=== PATIENT | male | born 1985 | race Caucasian/White ===

== ENCOUNTER 2020-10-06 08:58 | Emergency (ER) | payer OTHER, SELFPAY ==
[2020-10-06 09:05] VITALS: BP 130/82; PULSE 90; RESP 19; TEMP 36.9; O2SAT 98; BMI 31.7
[2020-10-06 09:30] LABS: UTC Strep Screen (Rapid) Negative (Negative)
--- NOTE | 2020-10-06 09:32 | HMH.EDUTC ---
[facility] [place] Clinical Impression: Dental abscess Disposition: Home, Self-Care Condition on Discharge: Good Instructions: Tooth Abscess, Amoxicillin and Clavulanic Acid Additional Instructions: Take medication as prescribed Follow up with your Family Doctor and/or Dentist if no improvement or any worsening of symptoms Return if needed Straight to ER if any life threatening symptoms Continue to gargle warm salt water Prescriptions: Amoxicillin/Potassium Clav [Augmentin 875-125 Tablet] 1 tab PO Q12H 7 Days #14 tab Transmission Status: Pending to [facility] Referrals: Gustavo Lee MD [Primary Care Provider] - As needed [place] [Referring] - Forms: Work/School Release Time of Disposition: 09:41 Medical Decision Making - John Inquiry Pt receiving controlled substance: No John was queried for this patient: No Vital Signs: 10/06/20 09:05 Temperature 98.4 F Temperature Source Oral Pulse Rate [Right Brachial] 90 Respiratory Rate 19 Blood Pressure [Right Arm] 130/82 Blood Pressure Mean [Right Arm] 98 Blood Pressure Source [Right Arm] Automatic Cuff Blood Pressure Position [Right Arm] Sitting 02 Sat by Pulse Oximetry 98 Oxygen Delivery Method Room Air - Lab Data Lab results reviewed: Yes: I reviewed the patient's lab results. Lab Results 10/06/20 09:18: Strep Scn Rapid Clinic Negative Orders (Tests/Meds): ORDERS Category Date Time Status Strep Screen Confirmation Stat Micro 10/06/20 09:18 Received [facility] [place] - General Stated complaint: sore/swollen lymph nodes Time Seen by Provider: 10/06/20 09:32 Mode of Arrival: Ambulatory Source of Information: Patient Limitations: No Limitations Description of Symptoms (Recalled from Triage Doc. by RN): PATIENT C/O SWELLING UNDER CHIN AND LYMPH NODES X 2 DAYS HEENT Symptoms (Recalled from RN notes): Yes Resp Symptoms (Recalled from RN notes): No Skin Symptoms (Recalled from RN notes): No MS Symptoms (Recalled from RN notes): No Functional Status (Recalled from RN notes): WNL - History of Present Illness Provider Complaint: Patient states that he had some swelling in his gums on the left lower jaw area a few days ago gargled warm salt water and that went down Then woke up yesterday and had a fever blister and noticed he had some swelling in his lymph nodes and under his chin area State that area is tender and hurts when he touches it States that his tooth was no longer hurting but still had some swelling and has a tooth there with filling - Related Data Previous Rx's Medication Instructions Recorded Amoxicillin/Potassium Clav 1 tab PO Q12H 7 Days #14 tab 10/06/20 [Augmentin 875-125 Tablet] Allergies Allergy/AdvReac Type Severity Reaction Status Date / Time No Known Allergies Allergy Verified 10/09/19 10:13 - Worker's Comp Is this a Worker's Comp case?: No [facility] History - Hepatitis A Screen Drug use history?: No High risk sexual behaviors?: No History of sexually transmitted infection?: No Currently employed?: No Childcare worker?: No Do you have indoor plumbing?: Yes Do you have electricity?: Yes Attestation statement:: This patient has been screened for Hepatitis A risk factors. I have reviewed the patient's past medical history: Yes 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: Denies:: Diabetes Mellitus Type 1, Diabetes Mellitus Type 2, Internal Pacemaker, Lung Disease, Seizures Comment: Obesity Laterality Cases: Bilateral: Tonsillectomy Other Surgeries: Yes: Colonoscopy (x2). No: Pacemaker - Social History Smoking Status: Never smoker Tobacco Type: smokeless tobacco # Packs/Day (cigarettes): 1 Alcohol Intake: never Substance Use Type: denies use Occupational Status: other Housing: other Household Members: other Family Hx:: No significant family history ROS Obtained: Yes All systems reviewed & no additional complaints, Yes Systems reviewed as appropriate & no additional complaints - Constitutional Const
[2020-10-06 09:43] VITALS: BP 130/82; PULSE 90; RESP 19; TEMP 36.9; O2SAT 98
== END 2020-10-06 09:45 | disposition home or self-care (01) ==
PROVIDERS: Emergency Provider Nurse Practitioner; PCP Emergency Medicine
DX: K04.7 Periapical abscess without sinus (principal)
CPT/HCPCS: 87880; 99202; G0463

== ENCOUNTER → 2021-07-10 08:43 | Outpatient (CLI) | payer OTHER, SELFPAY | PROVIDERS: PCP Emergency Medicine; Visit Provider Nurse Practitioner | DX: Z20.822 Contact with and (suspected) exposure to COVID-19 (principal) | CPT/HCPCS: C9803; U0003; U0005 ==

== ENCOUNTER → 2021-08-11 11:24 | Outpatient (CLI) | payer OTHER, SELFPAY | PROVIDERS: PCP Emergency Medicine; Visit Provider Nurse Practitioner | DX: Z20.822 Contact with and (suspected) exposure to COVID-19 (principal) | CPT/HCPCS: C9803; U0003; U0005 ==

== ENCOUNTER 2021-08-27 17:16 | Emergency (ER) | payer OTHER, SELFPAY ==
[2021-08-27 17:41] VITALS: BP 153/93; PULSE 109; RESP 18; TEMP 37.3; O2SAT 96; BMI 32.0
[2021-08-27 18:57] LABS: Strep Scrn Group A (Rapid) Negative (Negative)
--- NOTE | 2021-08-27 19:02 | HMH.EDUTC ---
[facility] [place] Clinical Impression: Gastroenteritis Disposition: Home, Self-Care Condition on Discharge: Good Instructions: DI for Viral Gastroenteritis -- Adult, Viral Gastroenteritis, Ondansetron Additional Instructions: Drink plenty of fluids. Take tylenol or ibuprofen for pain or fever. Take the medications as directed. Follow up with your regular doctor. GO TO THE ER FOR ANY WORSENING SYMPTOMS Prescriptions: Ondansetron [Zofran 4mg ODT] 4 mg PO Q8HP PRN #20 tab PRN Reason: Nausea Transmission Status: Pending to [id number] Referrals: Gustavo Lee MD [Primary Care Provider] - Forms: Work/School Release Time of Disposition: 19:17 Medical Decision Making - Medical Records Medical records reviewed: No: I reviewed the patient's medical records. - John Inquiry Pt receiving controlled substance: No Vital Signs: 08/27/21 17:41 Temperature 99.1 F Temperature Source Oral Pulse Rate [Left] 109 H Respiratory Rate 18 Blood Pressure [Right Arm] 153/93 H Blood Pressure Mean [Right Arm] 113 02 Sat by Pulse Oximetry 96 - Lab Data Lab results reviewed: Yes: I reviewed the patient's lab results. Lab Results 08/27/21 18:01: Group A Strep Rapid Negative Orders (Tests/Meds): ED MEDICATIONS Discontinued Medications Generic Name Dose Route Start Last Admin Trade Name Freq PRN Reason Stop Dose Admin Acetaminophen 975 mg 08/27/21 18:04 08/27/21 18:06 Acetaminophen 325mg Tab PO 08/27/21 18:05 975 mg ONCE ONE Administration Ondansetron HCl 4 mg 08/27/21 18:04 08/27/21 18:06 Ondansetron 4mg Odt SL 08/27/21 18:05 4 mg ONCE ONE Administration ORDERS Category Date Time Status Strep Screen Confirmation Stat Micro 08/27/21 18:01 Re[place] [facility] [place] - General Stated complaint: NAUSA,INDESGESTION Time Seen by Provider: 08/27/21 19:02 Mode of Arrival: Ambulatory Source of Information: Patient Limitations: No Limitations Description of Symptoms (Recalled from Triage Doc. by RN): PT C/O N/V/D, WEAKNESS, INDENGESTION AND EXCESSIVE BELCHING SINCE THIS AM. HEENT Symptoms (Recalled from RN notes): No Resp Symptoms (Recalled from RN notes): No Skin Symptoms (Recalled from RN notes): No MS Symptoms (Recalled from RN notes): No Functional Status (Recalled from RN notes): WNL - History of Present Illness Provider Complaint: He states that he ate out last night, then through the night he began to burp and have indigestion. By this morning he had vomited x2 and had diarrhea. He denies abdominal pain, but he has had episodes of abdominal cramping through today. He denies any sore throat or other symptoms. - Related Data Previous Rx's Medication Instructions Recorded Amoxicillin/Potassium Clav 1 tab PO Q12H 7 Days #14 tab 10/06/20 [Augmentin 875-125 Tablet] Ondansetron [Zofran 4mg ODT] 4 mg PO Q8HP PRN #20 tab 08/27/21 Allergies Allergy/AdvReac Type Severity Reaction Status Date / Time No Known Allergies Allergy Verified 10/09/19 10:13 - Worker's Comp Is this a Worker's Comp case?: No [facility] History - Hepatitis A Screen Drug use history?: No High risk sexual behaviors?: No History of sexually transmitted infection?: No Currently employed?: No Childcare worker?: No Do you have indoor plumbing?: Yes Do you have electricity?: Yes Attestation statement:: This patient has been screened for Hepatitis A risk factors. I have reviewed the patient's past medical history: Yes 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: Denies:: Diabetes Mellitus Type 1, Diabetes Mellitus Type 2, Internal Pacemaker, Lung Disease, Seizures Comment: Obesity Laterality Cases: Bilateral: Tonsillectomy Other Surgeries: Yes: Colonoscopy (x2). No: Pacemaker - Social History Smoking Status: Never smoker Tobacco Type: smokeless tobacco # Packs/Day (cigarettes): 1 Alcohol Intake: never Substance Use Type: denies use Occupational Status: other Housing:
[2021-08-27 19:20] VITALS: BP 153/93; PULSE 109; RESP 18; TEMP 37.3
== END 2021-08-27 19:21 | disposition home or self-care (01) ==
PROVIDERS: Emergency Provider Nurse Practitioner Family; PCP Emergency Medicine
DX: K52.9 Noninfective gastroenteritis and colitis, unspecified (principal)
CPT/HCPCS: 87430; 99202; C9803; G0463; U0003; U0005

== ENCOUNTER → 2021-09-06 12:43 | Outpatient (CLI) | payer OTHER, SELFPAY | PROVIDERS: Visit Provider Nurse Practitioner | DX: Z20.822 Contact with and (suspected) exposure to COVID-19 (principal) | CPT/HCPCS: C9803; U0003; U0005 ==

== ENCOUNTER → 2021-11-14 08:52 | Outpatient (CLI) | payer OTHER, SELFPAY | PROVIDERS: Visit Provider Surgery | DX: Z01.812 Encounter for preprocedural laboratory examination (principal); Z11.52 Encounter for screening for COVID-19; Z12.11 Encounter for screening for malignant neoplasm of colon | CPT/HCPCS: C9803; U0003; U0005 ==

== ENCOUNTER 2021-11-17 09:26 | Day surgery (SDC) | payer OTHER, SELFPAY ==
[2021-11-17] VITALS (7 sets, daily range): BP systolic 96–138; BP diastolic 60–96; PULSE 64–77; RESP 16–18; TEMP 36.2–37; O2SAT 93–98; BMI 32.5
--- NOTE | 2021-11-17 10:00 | P.PN_ITS ---
[facility] [place] Anesthesia Checklist - Patient Identification Patient Identification: Arm Band - Structural Data Planned Operative Procedure/s: colonoscopy Consent for Planned Operative Procedure(s) Verified: Yes Verified Documents: Surgical Consent, History and Physical - NPO Status Verified Time NPO: 00:00 - Additional verifications Anesthesia Reactions: No - Airway Assessment C-Spine Mobility Assessed: Yes (mp2) TMJ Mobility Assessed: Yes Dentition: Good Dentition - Neurological Assessment Level of Consciousness: Awake, Alert - Anesthesia Plan Anesthesia Risk discussed: Yes Anesthesia Plan: Verified ASA Class: II Anesthesia Type: MAC [facility] [place] History 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: Denies:: Cancer, Diabetes Mellitus Type 1, Diabetes Mellitus Type 2, Internal Pacemaker, Lung Disease, MRSA, Seizures *Have you ever received a pneumonia vaccine?: No *Have you received a flu vaccine this season?: No Anesthesia experience/problems:: nac Laterality Cases: Bilateral: Tonsillectomy Other Surgeries: Yes: Colonoscopy (x2). No: Pacemaker Amputation: No Fractures: No - *Social History Last grade of school completed: Some college Smoking Status: Light tobacco smoker Tobacco Type: smokeless tobacco # Packs/Day (cigarettes): 1 Alcohol Intake: never Substance Use Type: denies use *Occupational Status:: employed Housing: house Household Members: spouse *Travel in the last 8 weeks: None Family Hx:: No significant family history
--- NOTE | 2021-11-17 10:34 | P.PCN_ITS ---
- Procedure: Date: 11/17/21 Patient Date of :: 1985 Procedure Performed:: Colonoscopy Indications:: History of colon polyps Performing Provider:: Jose Scott MD Referring Provider:: . Sedation:: Monitored anesthesia care Procedure:: After informed consent was obtained the patient was taken to the endoscopy suite. Sedation ensued after the patient was transferred to the left lateral decubitus position. Pulse, blood pressure, and oxygen saturation were monitored throughout the procedure. Digital rectal exam revealed no significant abnor mality. The colonoscope was placed in position. The entire colon was evaluated. The colonoscope was carefully removed and the patient was transferred to recovery in stable condition. Please see findings and specimens below for detail. Findings:: Bowel preparation fair to moderate Scattered sigmoid diverticulosis Specimens:: None Recommendations:: Repeat colonoscopy in 3-5 years Complications:: No immediate Estimated blood obtained (mL): 0
== END 2021-11-17 11:25 | disposition home or self-care (01) ==
LOC: OUTP 09:29
PROVIDERS: PCP Emergency Medicine; Visit Provider Surgery
PROC: 0DJD8ZZ Inspection of Lower Intestinal Tract, Via Natural or Artificial Opening Endoscopic (ICD-10-PCS; CPT 45378; principal; 2021-11-17 10:30)
DX: Z12.11 Encounter for screening for malignant neoplasm of colon (principal); Z86.010 Personal history of colon polyps; K57.30 Diverticulosis of large intestine without perforation or abscess without bleeding
CPT/HCPCS: 45378

== ENCOUNTER → 2022-03-11 06:53 | Outpatient (CLI) | payer OTHER, SELFPAY ==
[2022-03-11 18:31] LABS: Basophils # 0.1 K/mm3 (0-0.2); Basophils % 0.8 % (0.1-2.0); Eosinophils # 0.1 K/mm3 (0.0-0.4); Eosinophils % 0.7 % (0.1-12.0); Hematocrit 49.4 % (42.0-52.0); Hemoglobin 16.2 g/dL (14.1-18.0); Lymphocytes # 2.1 K/mm3 (0.7-4.5); Lymphocytes % 22.8 % (10-50); Mean Corpuscular HGB Conc 32.7 g/dL (31.8-35.4); Mean Corpuscular Volume 88.5 fl (80-94); Monocytes # 0.5 K/mm3 (0.1-1.0); Monocytes % 5.3 % (1.7-9.3); Neutrophils # 6.4 K/mm3 (1.8-7.8); Neutrophils % 70.4 % (37.0-80.0); Platelet Count 355 K/mm3 (142-424); Red Blood Count 5.58 M/mm3 (4.60-6.20); White Blood Count 9.1 K/mm3 (4.8-10.8)
[2022-03-11 19:14] LABS: Alanine Aminotransferase 60 U/L (12-78); Albumin Level 4.7 g/dl (3.5-5.0); Albumin/Globulin Ratio 1.7 (1.1-1.8); Alkaline Phosphatase 68 U/L (38-126); Anion Gap 14.9 mEq/L (5-15); Aspartate Amino Transferase 37 U/L (17-59); Bilirubin,Total 1.8 mg/dl (0.2-1.3); Blood Urea Nitrogen 13 mg/dl (9-20); Calcium 10.1 mg/dl (8.4-10.2); Carbon Dioxide 25 mmol/L (22.0-30.0); Chloride 104 mmol/L (98-107); Chol/HDL Ratio 4.3 (1-3.5); Cholesterol 192 mg/dl (140-200); Estimated Glomerular Filt Rate 86 ml/min (>60); GFR (African American) 103 ML/MIN (>60); Globulin 2.7 g/dL (1.3-3.2); Glucose 99 mg/dl (74-100); HDL Cholesterol 45 mg/dl (40-60); Potassium 3.9 mmoL/L (3.5-5.1); Sodium 140 mmol/L (136-145); Total Protein,Serum 7.4 g/dl (6.3-8.2); Triglycerides 107 mg/dl (30-150); VLDL Cholesterol 21 mg/dL (0-40)
[2022-03-11 19:32] LABS: 25-OH Vitamin D, Total 44.5 ng/mL (30-100)
[2022-03-11 19:44] LABS: Thyroid Stimulating Hormone 0.72 uIU/mL (0.465-4.68)
[2022-03-11 20:04] LABS: Vitamin B12 548 pg/mL (239-931)
[2022-03-13 07:15] LABS: Direct LDL Cholesterol 110 mg/dL (100-129)
== END ==
PROVIDERS: PCP Physician Assistant; Visit Provider Physician Assistant
DX: F41.9 Anxiety disorder, unspecified (principal); E66.9 Obesity, unspecified; Z68.32 Body mass index [BMI] 32.0-32.9, adult
CPT/HCPCS: 80053; 80061; 82306; 82607; 84443; 85025

== ENCOUNTER → 2022-04-16 16:41 | Outpatient (CLI) | payer OTHER, SELFPAY | PROVIDERS: PCP Physician Assistant; Visit Provider Physician Assistant | DX: G47.33 Obstructive sleep apnea (adult) (pediatric) (principal); R06.83 Snoring; G47.00 Insomnia, unspecified | CPT/HCPCS: G0399 ==

== ENCOUNTER → 2022-05-31 14:45 | Outpatient (CLI) | payer OTHER, SELFPAY ==
[2022-05-31 18:35] LABS: Amphetamine/Metha Screen,Urine Negative ng/ml (<1000); Barbiturates Screen,Urine Negative ng/ml (<200)
[2022-05-31 18:36] LABS: Benzodiazepines Screen,Urine Positive ng/ml (<200)
[2022-05-31 18:37] LABS: Cannabinoid Screen,Urine Negative ng/ml (<50); Cocaine Screen,Urine Negative ng/ml (<300)
[2022-05-31 18:38] LABS: Methadone Screen,Urine Negative ng/ml (<300)
[2022-05-31 18:39] LABS: Opiate Screen,Urine Negative ng/ml (<300)
[2022-05-31 18:40] LABS: Phencyclidine Screen,Urine Negative ng/ml (<25)
== END ==
PROVIDERS: PCP Physician Assistant; Visit Provider Physician Assistant
DX: Z79.899 Other long term (current) drug therapy (principal)
CPT/HCPCS: 80305

== ENCOUNTER 2022-09-25 16:59 | Emergency (ER) | payer OTHER, SELFPAY ==
[2022-09-25 17:15] VITALS: BP 133/88; PULSE 85; RESP 16; TEMP 36.7; O2SAT 99; BMI 37.9
[2022-09-25 17:26] LABS: Apearance,Urine Clear (Clear); Bilirubin,Urine Negative (Negative); Blood, Urine Negative (Negative); Color,Urine Dark Yellow (Yellow); Glucose,Urine (UA) Negative (Negative); Ketones,Urine Negative (Negative); PH,Urine 6.5 (5.0-8.5); Protein,Urine Negative (Negative); Specific Gravity, Urine 1.025 (1.005-1.030); UTC Leukocyte Esterase,Urine Negative (Negative); UTC Nitrate,Urine Negative (Negative); Urobilinogen,Urine 1 EU/dl (0.2)
[2022-09-25 17:54] VITALS: BP 133/88; PULSE 85; RESP 16; TEMP 36.7; O2SAT 99
--- NOTE | 2022-09-25 18:09 | EXP.UTC ---
Discharge Plan Disposition Patient Disposition: Home, Self-Care Condition: Good Prescriptions Prescriptions: New sulfamethoxazole-trimethoprim [Bactrim DS] 800-160 mg tablet 1 tab PO Q12H Qty: 20 0RF No Action buspirone 15 mg tablet 15 mg PO TID PRN (Reason: anxiety) Qty: 90 3RF cyclobenzaprine 10 mg tablet 10 mg PO HS Qty: 30 0RF fluticasone propionate [Flonase Allergy Relief] 50 mcg/actuation spray,suspension 1 spray NS DAILY Qty: 16 3RF Rx Instructions: administer into each nostril loratadine [Allergy Relief (loratadine)] 10 mg tablet 10 mg PO DAILY Qty: 90 3RF amitriptyline 25 mg tablet 25 mg PO DAILY Qty: 30 2RF montelukast 10 mg tablet 10 mg PO DAILY Qty: 30 2RF alprazolam [Xanax] 0.5 mg tablet 0.5 mg PO BID Qty: 60 0RF Referrals Follow up/Referrals: Lisha Marquez PA [Primary Care Provider] - See instructions Activity Restrictions/Add. Instructions Additional Instructions/Restrictions: follow up with pcp if symptoms worsen or do not improve return Clinical Impressions Clinical Impression: Prostatitis, acute Instructions Patient Instructions: DI for Acute Prostatitis Discharge ED Provider: Giulia ([facility])[place] [facility] [place] HPI General Stated complaint: painful urination Mode of Arrival: Ambulatory Source of Information: Patient Limitations: No Limitations Time Seen by Provider: 09/25/22 18:09 Description of Symptoms (Recalled from Triage Doc. by RN): PATIENT C/O PAIN WITH URINATION X 3 DAYS HEENT Symptoms (Recalled from RN notes): No Resp Symptoms (Recalled from RN notes): No Skin Symptoms (Recalled from RN notes): No MS Symptoms (Recalled from RN notes): No Functional Status (Recalled from RN notes): WNL History of Present Illness Provider Complaint: 37 yr old male presents for painful urination, decrease stream and pressure. pt states he had this a few years Related Data Previous Rx's Medication Instructions Recorded cyclobenzaprine 10 mg tablet 10 mg PO HS #30 tabs 03/11/22 fluticasone propionate 50 1 spray intranasal DAILY #16 grams 03/15/22 mcg/actuation nasal spray,suspension (Flonase Allergy Relief) loratadine 10 mg tablet (Allergy 10 mg PO DAILY #90 tabs 03/15/22 Relief (loratadine)) buspirone 15 mg tablet 15 mg PO TID PRN anxiety #90 tabs 04/06/22 amitriptyline 25 mg tablet 25 mg PO DAILY #30 tabs 04/08/22 montelukast 10 mg tablet 10 mg PO DAILY #30 tabs 05/06/22 alprazolam 0.5 mg tablet (Xanax) 0.5 mg PO BID #60 tabs 09/21/22 sulfamethoxazole 800 1 tab PO Q12H #20 tabs 09/25/22 mg-trimethoprim 160 mg tablet (Bactrim DS) Allergies Allergy/AdvReac Type Severity Reaction Status Date / Time No Known Allergies Allergy Verified 08/25/22 16:06 Worker's Comp Is this a Worker's Comp case?: No [facility] Disclaimer: The information contained in this section may have been updated after the patient was seen, as this information can be updated by other users. 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
== END 2022-09-25 18:26 | disposition home or self-care (01) ==
PROVIDERS: Emergency Provider Nurse Practitioner Family; PCP Physician Assistant
DX: N41.0 Acute prostatitis (principal)
CPT/HCPCS: 81003; 87086; 99212; 99213; G0463

== ENCOUNTER 2022-09-30 15:05 | Day surgery (SDC) | payer OTHER, SELFPAY ==
[2022-09-30] VITALS (14 sets, daily range): BP systolic 107–152; BP diastolic 43–94; PULSE 78–95; RESP 14–18; TEMP 36.6–43; O2SAT 94–100; BMI 34.1
--- NOTE | 2022-09-30 15:13 | HMH.EDGENADL ---
Discharge Plan Disposition Patient Disposition: Admitted As Inpatient Prescriptions Prescriptions: No Action cyclobenzaprine 10 mg tablet 10 mg PO HS Qty: 30 0RF fluticasone propionate [Flonase Allergy Relief] 50 mcg/actuation spray,suspension 1 spray NS DAILY Qty: 16 3RF Rx Instructions: administer into each nostril loratadine [Allergy Relief (loratadine)] 10 mg tablet 10 mg PO DAILY Qty: 90 3RF montelukast 10 mg tablet 10 mg PO DAILY Qty: 30 2RF alprazolam [Xanax] 0.5 mg tablet 0.5 mg PO BID Qty: 60 0RF sulfamethoxazole-trimethoprim [Bactrim DS] 800-160 mg tablet 1 tab PO Q12H Qty: 20 0RF Referrals Follow up/Referrals: Lisha Marquez PA [Primary Care Provider] - See instructions Clinical Impressions Clinical Impression: Acute appendicitis Instructions Patient Instructions: DI for Acute Abdominal Pain Discharge ED Provider: Abram Garner General Adult HPI General Chief complaint: Abdominal Pain Stated complaint: abd pain back pain Time Seen by Provider: 09/30/22 15:14 History of Present Illness HPI narrative: Patient is a 37-year-old male presenting today with abdominal pain. States that he was seen by his providers at the end of last week with dysuria and was diagnosed with acute prostatitis. He denies any sexual activity with anyone other than his for the last 15 years. Denies a history of GC or chlamydia. States that he did not have significant pain with defecation. No one examined him for this diagnosis and claims that in the past someone told him he had an enlarged prostate. He has been on Bactrim since the end of last week and states that his urinary symptoms have improved. However over the last few days of increasing abdominal pain states significant, from history states that primarily epigastric left upper and left lower quadrant. Denies any changes in bowel movements or urinary symptoms at this point. No fevers or chills. Does state he has had multiple screening colonoscopies for premalignant polyps by Dr. Simons. Also states that he has significant anxiety and stress and he is on Xanax daily and also takes Flexeril as a muscle relaxer. Related Data Previous Rx's Medication Instructions Recorded cyclobenzaprine 10 mg tablet 10 mg PO HS #30 tabs 03/11/22 fluticasone propionate 50 1 spray intranasal DAILY #16 grams 03/15/22 mcg/actuation nasal spray,suspension (Flonase Allergy Relief) loratadine 10 mg tablet (Allergy 10 mg PO DAILY #90 tabs 03/15/22 Relief (loratadine)) montelukast 10 mg tablet 10 mg PO DAILY #30 tabs 05/06/22 alprazolam 0.5 mg tablet (Xanax) 0.5 mg PO BID #60 tabs 09/21/22 sulfamethoxazole 800 1 tab PO Q12H #20 tabs 09/25/22 mg-trimethoprim 160 mg tablet (Bactrim DS) Allergies Allergy/AdvReac Type Severity Reaction Status Date / Time No Known Allergies Allergy Verified 09/30/22 08:34 [facility] Disclaimer: The information contained in this section may have been updated after the patient was seen, as this information can be updated by other users. 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
--- NOTE | 2022-09-30 15:19 | PC.NURSE ---
er at bedside
--- NOTE | 2022-09-30 15:26 | CT_ITS ---
FINAL REPORT TECHNIQUE: After the administration of intravenous contrast, axial images were obtained through the abdomen and pelvis by computed tomography. This study was performed with technique to keep radiation doses as low as reasonably achievable, (ALARA). Individualized dose reduction techniques using automated exposure control or adjustment of the MA and/or KV according to the patient's size were employed. CLINICAL HISTORY: RLQ abd pain FINDINGS: Abdomen: The lung bases demonstrate bibasilar atelectasis. The liver is fatty infiltrated. The spleen is unremarkable. The adrenals are normal. The pancreas is unremarkable. The kidneys enhance appropriately. The aorta is normal in caliber. There is no free fluid or adenopathy. No bowel obstruction is seen. Pelvis: The appendix is enlarged and fluid-filled with surrounding inflammatory change consistent with acute appendicitis. There is no evidence of abscess. The urinary bladder is unremarkable. There is no adenopathy. IMPRESSION: Acute, uncomplicated appendicitis. Reviewed, Interpreted and Dictated by Horacio Rose III, MD Transcribed by Kenzie Temple Authenticated and [facility]
[2022-09-30 15:48] LABS: Basophils # 0.1 K/mm3 (0-0.2); Basophils % 0.8 % (0.1-2.0); Eosinophils # 0.5 K/mm3 (0.0-0.4); Eosinophils % 3.3 % (0.1-12.0); Hematocrit 50.9 % (42.0-52.0); Hemoglobin 16.2 g/dL (14.1-18.0); Lymphocytes # 1.5 K/mm3 (0.7-4.5); Lymphocytes % 10.7 % (10-50); Mean Corpuscular HGB Conc 31.9 g/dL (31.8-35.4); Mean Corpuscular Hemoglobin 28.7 pg (27.0-31.2); Mean Corpuscular Volume 89.8 fl (80-94); Mean Platelet Volume 7.7 fl (7.4-10.4); Monocytes # 0.5 K/mm3 (0.1-1.0); Monocytes % 3.5 % (1.7-9.3); Neutrophils # 11.7 K/mm3 (1.8-7.8); Neutrophils % 81.6 % (37.0-80.0); Platelet Count 283 K/mm3 (142-424); Red Blood Count 5.66 M/mm3 (4.60-6.20); White Blood Count 14.3 K/mm3 (4.8-10.8)
[2022-09-30 15:54] LABS: Chloride 104 mmol/L (98-107); Potassium 4.5 mmoL/L (3.5-5.1); Sodium 138 mmol/L (136-145)
[2022-09-30 15:56] LABS: Blood Urea Nitrogen 13 mg/dl (9-20); Creatinine Clearance Estimated 109 mL/min (50-200); Estimated Glomerular Filt Rate 58 ml/min (>60); GFR (African American) 70 ML/MIN (>60)
[2022-09-30 15:57] LABS: Alanine Aminotransferase 70 U/L (12-78); Albumin Level 4.3 g/dl (3.5-5.0); Albumin/Globulin Ratio 1.4 (1.1-1.8); Alkaline Phosphatase 52 U/L (38-126); Anion Gap 9.5 mEq/L (5-15); Aspartate Amino Transferase 41 U/L (17-59); Bilirubin,Total 1.4 mg/dl (0.2-1.3); Calcium 8.7 mg/dl (8.4-10.2); Carbon Dioxide 29 mmol/L (22.0-30.0); Glucose 92 mg/dl (74-100); Lipase 83 U/L (23-300); Total Protein,Serum 7.3 g/dl (6.3-8.2)
--- NOTE | 2022-09-30 16:13 | PC.NURSE ---
rounded on pt states still discomfort in belly
--- NOTE | 2022-09-30 16:22 | PC.NURSE ---
pt arrived back to room from ct
[2022-09-30 16:33] LABS: Microscopic, Urine URINE MICROSCOPIC (MICROSCOPIC)
[2022-09-30 16:39] LABS: Appearance,Urine CLEAR (Clear); Bilirubin,Urine Negative (Negative); Blood, Urine TRACE-I (Negative); Color,Urine YELLOW (Yellow); Glucose,Urine (UA) Negative (Negative); Ketones,Urine Negative (Negative); Leukocyte Esterase,Urine Negative (Negative); Nitrate,Urine Negative (Negative); Protein,Urine Negative (Negative); Specific Gravity, Urine 1.025 (1.005-1.030); Urobilinogen,Urine 0.2 EU/dl (0.2)
[2022-09-30 16:44] LABS: RBC,Urine Occasional #/hpf (0-3); Squamous Epithelial Cell,Urine Occasional #/hpf (0-5)
--- NOTE | 2022-09-30 17:02 | PC.NURSE ---
Results of CT Abd/Pelvis indicate acute appendicitis, communicated to patient, and contacted General Surgery Dr. Scott, who will see patient corinne
--- NOTE | 2022-09-30 17:21 | PC.NURSE ---
1709 DR ARANDA CALLED TO HAVE SURGERY TEAM CALLED IN FOR SURGERY SURGERY TEAM PAGED AT 1710 [address] PANDYA NOTIFIED AND CALLED BACK AT 171 AMY, RN NOTIFIED AND CALLED BACK AT [address] NOTIFIED AND CALLED BACK AT 171
--- NOTE | 2022-09-30 17:40 | PC.NURSE ---
Dr holley at bedside speaking with patient before going to or
--- NOTE | 2022-09-30 17:55 | PC.NURSE ---
Katie-Op took pt to App[facility]
--- NOTE | 2022-09-30 18:44 | EXP.ANES.CKL ---
[facility] Disclaimer: The information contained in this section may have been updated after the patient was seen, as this information can be updated by other users. 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 caffeine: Yes [facility] Anesthesia Checklist Patient Identification Patient Identification: Arm Band Structural Data Admitted From: Emergency Dept Planned Operative Procedure/s: Laparoscopic Appendectomy Consent for Planned Operative Procedure(s) Verified: Yes Verified Documents: Surgical Consent and History and Physical NPO Status Verified Time NPO: 00:00 Additional verifications Anesthesia Reactions: No Airway Assessment C-Spine Mobility Assessed: Yes TMJ Mobility Assessed: Yes Dentition: Good Dentition Neurological Assessment Level of Consciousness: Awake and Alert Anesthesia Plan Anesthesia Risk discussed: Yes Anesthesia Plan: Verified ASA Class: II (E) Anesthesia Type: General
--- NOTE | 2022-09-30 19:17 | EXP.OP.NOTE ---
Date of procedure: 09/30/22 Pre-op Diagnosis:: Appendicitis Post-op Diagnosis:: Same Procedure performed:: Laparoscopic appendectomy Surgeon:: Jose Scott MD WATER MAIN INSPECTOR:: Sukh Olivo Anesthesia: PASHA Estimated blood loss (mL): 15 Operative findings:: Severe inflammatory change throughout the appendix with patchy suppurative changes. No evidence of perforation Operative note:: After informed consent was obtained the patient was taken to the operating room and placed in the supine position. General anesthesia was induced and his abdomen was prepped and draped in a sterile fashion. After infiltration local anesthetic a supraumbilical incision was made. A Veress needle was placed in position. The abdomen was insufflated. A 12 mm optical trocar was placed in position. Under direct visualization a 5 mm trocar was placed in the suprapubic position and an additional 5 mm trocar was placed in the left lower quadrant. The appendix was identified along the lateral gutter. Severe inflammatory changes throughout the appendiceal region/mesoappendix were noted. Harmonic jae were utilized to take down the mesoappendix as elevation continued. Once the appendiceal base was encountered an Endopath 45 stapling device was used to transect the appendix at its base. The appendix was placed in a retrieval bag and removed through the supraumbilical trocar site. The right lower quadrant was thoroughly irrigated. No active bleeding or sign of injury was noted. No pockets of purulence were seen. The fascia at the supraumbilical trocar site was reapproximated utilizing the needle close device. Pneumoperitoneum was released as the remaining trocars were removed. All wounds were irrigated and skin was closed with 4-0 Monocryl in a mattress fashion to facilitate hemostasis. Dressings were applied and the patient was transferred to recovery in stable condition. Condition: stable Disposition: PACU Specimens:: Appendix Complications:: No immediate
--- NOTE | 2022-09-30 19:23 | P.PNANES_ITS ---
[facility] Anesthesia Record Part I Anesthesia Record I Intake, IV Amount: 1,000 Estimated blood loss (mL): 10 Urine output (mL): 500 Blood Products used (#): none Blood Pressure: 125/89 SaO2: 98 Pulse Rate: 93 Respiratory Rate: 16 Temperature: 98.6 F Patient is:: Drowsy and Stable Stable to PACU at:: 19:20
[2022-10-01 13:29] VITALS: BP 125/65; PULSE 82; TEMP 36.6
--- NOTE | 2022-10-01 13:29 | P.PNANES_ITS ---
[facility] Anesthesia Record Part II Anesthesia Record Part II Discharge Time: 19:50 Destination: Surgical Day Care (OP Surgery) PACU nurse assessment reviewed?: Yes Patient Condition:: Good Anesthesia Complications:: None Swallowing reflex intact?: Yes Cyanosis?: No Blood Pressure: 125/65 Pulse Rate: 82 Temperature: 97.9 F Mental Status: Alert & Oriented Pain level:: 0 Nausea and/or vomitting:: None Intake, IV Amount: 0
== END 2022-09-30 20:40 | disposition home or self-care (01) ==
LOC: ER 16:59 → SDC 19:24
PROVIDERS: Emergency Provider Student in an Organized Health Care Education/Training Program; PCP Physician Assistant; Visit Provider Surgery
PROC: 0DTJ4ZZ Resection of Appendix, Percutaneous Endoscopic Approach (ICD-10-PCS; CPT 44970; principal; 2022-09-30 18:00)
DX: K35.80 Unspecified acute appendicitis (principal); R10.31 Right lower quadrant pain
CPT/HCPCS: 44970; 74177; 80053; 81001; 83690; 85025; J0696; J2405; J2710; Q9967

== ENCOUNTER → 2022-10-13 08:26 | Outpatient (CLI) | payer OTHER, SELFPAY ==
[2022-10-13 15:14] LABS: Prostate Specific Ag Screen 0.6 ng/ml (0.0-4.0)
[2022-10-15 12:55] LABS: Chloride 104 mmol/L (98-107); Sodium 139 mmol/L (136-145)
[2022-10-15 12:58] LABS: Alanine Aminotransferase 82 U/L (12-78); Albumin Level 4.5 g/dl (3.5-5.0); Albumin/Globulin Ratio 1.6 (1.1-1.8); Alkaline Phosphatase 57 U/L (38-126); Aspartate Amino Transferase 41 U/L (17-59); Bilirubin,Total 1.2 mg/dl (0.2-1.3); Blood Urea Nitrogen 16 mg/dl (9-20); Calcium 9.5 mg/dl (8.4-10.2); Carbon Dioxide 26 mmol/L (22.0-30.0); Estimated Glomerular Filt Rate 85 ml/min (>60); GFR (African American) 103 ML/MIN (>60); Globulin 2.9 g/dL (1.3-3.2); Glucose 93 mg/dl (74-100); Total Protein,Serum 7.4 g/dl (6.3-8.2)
== END ==
PROVIDERS: PCP Physician Assistant; Visit Provider Physician Assistant
DX: R39.11 Hesitancy of micturition (principal); R31.9 Hematuria, unspecified; R79.89 Other specified abnormal findings of blood chemistry
CPT/HCPCS: 80053; 87086; G0103

== ENCOUNTER 2022-10-31 18:42 | Emergency (ER) | payer OTHER, SELFPAY ==
[2022-10-31 18:55] VITALS: BP 163/102; PULSE 86; RESP 12; TEMP 36.8; O2SAT 99; BMI 32.5
[2022-10-31 18:59] LABS: Microscopic, Urine URINE MICROSCOPIC (MICROSCOPIC)
[2022-10-31 19:02] LABS: Appearance,Urine CLEAR (Clear); Bilirubin,Urine Negative (Negative); Blood, Urine TRACE-I (Negative); Color,Urine YELLOW (Yellow); Glucose,Urine (UA) Negative (Negative); Ketones,Urine Negative (Negative); Leukocyte Esterase,Urine Negative (Negative); Nitrate,Urine Negative (Negative); Protein,Urine Negative (Negative); Urobilinogen,Urine 0.2 EU/dl (0.2)
--- NOTE | 2022-10-31 19:08 | CT_ITS ---
PROCEDURE INFORMATION: Exam: CT Abdomen And Pelvis With Contrast Exam date and time: 10/31/2022 7:24 PM Age: 37 years old Clinical indication: Abdominal pain; Additional info: Status post appendectomy, concern for abscess TECHNIQUE: Imaging protocol: Computed tomography of the abdomen and pelvis with contrast. Radiation optimization: All CT scans at this facility use at least one of these dose optimization techniques: automated exposure control; mA and/or kV adjustment per patient size (includes targeted exams where dose is matched to clinical indication); or iterative reconstruction. Contrast material: ISOVUE; Contrast volume: 75 ml; Contrast route: IV; REPORTING DATA: Count of CT and Cardiac NM exams in prior 12 months: This patient has received [address] and 0 known cardiac nuclear medicine studies in the 12 months prior to the current study. COMPARISON: CT ABDOMEN PELVIS W CON 09/30/2022 4:18 PM FINDINGS: Liver: Normal. No mass. Gallbladder and bile ducts: Normal. No calcified stones. No ductal dilation. Pancreas: Normal. No ductal dilation. Spleen: Normal. No splenomegaly. Adrenal glands: Normal. No mass. Kidneys and ureters: Normal. No hydronephrosis. Stomach and bowel: Unremarkable. No obstruction. No mucosal thickening. Appendix: Appendectomy. Intraperitoneal space: Unremarkable. No free air. No significant fluid collection. Vasculature: Unremarkable. No abdominal aortic aneurysm. Lymph nodes: Unremarkable. No enlarged lymph nodes. Urinary bladder: Unremarkable as visualized. Reproductive: Unremarkable as visualized. Bones/joints: Unremarkable. No acute fracture. Soft tissues: Unremarkable. IMPRESSION: No acute findings.
--- NOTE | 2022-10-31 19:09 | HMH.EDGENADL ---
Discharge Plan Disposition Patient Disposition: Home, Self-Care Condition: Good Prescriptions Prescriptions: No Action ciprofloxacin HCl [Cipro] 500 mg tablet 500 mg PO BID 14 Days Qty: 28 0RF tamsulosin [Flomax] 0.4 mg capsule 0.4 mg PO DAILY Qty: 90 0RF metronidazole [Flagyl] 375 mg capsule 375 mg PO TID 7 Days Qty: 21 0RF cyclobenzaprine 10 mg tablet 10 mg PO HS Qty: 30 0RF fluticasone propionate [Flonase Allergy Relief] 50 mcg/actuation spray,suspension 1 spray NS DAILY Qty: 16 3RF Rx Instructions: administer into each nostril loratadine [Allergy Relief (loratadine)] 10 mg tablet 10 mg PO DAILY Qty: 90 3RF montelukast 10 mg tablet 10 mg PO DAILY Qty: 30 2RF alprazolam [Xanax] 0.5 mg tablet 0.5 mg PO BID Qty: 60 0RF Referrals Follow up/Referrals: Lisha Marquez PA [Primary Care Provider] - See instructions Clinical Impressions Clinical Impression: Back pain, Abdominal pain Instructions Patient Instructions: DI for Hematuria Discharge ED Provider: Hu Wick General Adult HPI General Chief complaint: Back Pain/Injury Stated complaint: lower back pain, dizzy,nausa Time Seen by Provider: 10/31/22 18:55 Mode of Arrival: Ambulatory Source of Information: Patient Limitations: No Limitations Description of Symptoms (Recalled from ER Triage Doc. by RN): Pt reports ongoing constipation since app09/30 and lower back History of Present Illness HPI narrative: Patient is a 37-year-old male with past medical history of recent appendectomy who presents with bilateral low back pain. He states that he has been having issues with urinating for quite a while. He has been placed on numerous antibiotics for this. They were told that his prostate was too big. He says that he has been going between diarrhea and constipation. He denies any fever or chills. He says that he intermittently will have some abdominal cramping but is not there all the time. He says that he wanted to come in today because he feels like he has a bowel blockage. Related Data Previous Rx's Medication Instructions Recorded cyclobenzaprine 10 mg tablet 10 mg PO HS #30 tabs 03/11/22 fluticasone propionate 50 1 spray intranasal DAILY #16 grams 03/15/22 mcg/actuation nasal spray,suspension (Flonase Allergy Relief) loratadine 10 mg tablet (Allergy 10 mg PO DAILY #90 tabs 03/15/22 Relief (loratadine)) montelukast 10 mg tablet 10 mg PO DAILY #30 tabs 05/06/22 ciprofloxacin HCl 500 mg tablet 500 mg PO BID 14 days #28 tabs 10/13/22 (Cipro) metronidazole 375 mg capsule 375 mg PO TID 7 days #21 caps 10/13/22 (Flagyl) tamsulosin 0.4 mg capsule (Flomax) 0.4 mg PO DAILY #90 caps 10/13/22 alprazolam 0.5 mg tablet (Xanax) 0.5 mg PO BID #60 tabs 10/19/22 Allergies Allergy/AdvReac Type Severity Reaction Status Date / Time No Known Allergies Allergy Verified 10/13/22 08:18 [facility] Disclaimer: The information contained in this section may have been updated after the patient was seen, as this information can be updated by other users. 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
[2022-10-31 19:18] LABS: Basophils # 0.1 K/mm3 (0-0.2); Basophils % 1.5 % (0.1-2.0); Eosinophils # 0.2 K/mm3 (0.0-0.4); Hemoglobin 16.4 g/dL (14.1-18.0); Lymphocytes # 2.3 K/mm3 (0.7-4.5); Lymphocytes % 26.8 % (10-50); Mean Corpuscular HGB Conc 32.8 g/dL (31.8-35.4); Mean Corpuscular Volume 88.5 fl (80-94); Mean Platelet Volume 7.6 fl (7.4-10.4); Monocytes # 0.5 K/mm3 (0.1-1.0); Monocytes % 5.7 % (1.7-9.3); Neutrophils # 5.6 K/mm3 (1.8-7.8); Platelet Count 292 K/mm3 (142-424); Red Blood Count 5.65 M/mm3 (4.60-6.20); White Blood Count 8.7 K/mm3 (4.8-10.8)
[2022-10-31 19:18] LABS: Amorphous Sediment,Urine 2+ /lpf; RBC,Urine Occasional #/hpf (0-3)
[2022-10-31 19:20] LABS: Chloride 102 mmol/L (98-107); Potassium 4.4 mmoL/L (3.5-5.1); Sodium 139 mmol/L (136-145)
[2022-10-31 19:23] LABS: Alanine Aminotransferase 97 U/L (12-78); Albumin Level 4.5 g/dl (3.5-5.0); Albumin/Globulin Ratio 1.5 (1.1-1.8); Alkaline Phosphatase 48 U/L (38-126); Anion Gap 9.4 mEq/L (5-15); Aspartate Amino Transferase 50 U/L (17-59); Blood Urea Nitrogen 18 mg/dl (9-20); Carbon Dioxide 32 mmol/L (22.0-30.0); Creatinine Clearance Estimated 146 mL/min (50-200); Estimated Glomerular Filt Rate 85 ml/min (>60); GFR (African American) 103 ML/MIN (>60); Total Protein,Serum 7.5 g/dl (6.3-8.2)
[2022-10-31 19:24] LABS: Calcium 9.5 mg/dl (8.4-10.2); Glucose 93 mg/dl (74-100)
--- NOTE | 2022-10-31 19:32 | PC.NURSE ---
PATIENT BACK FROM XRAY, GIVE TV REMOTE
[2022-10-31 20:48] VITALS: BP 146/89; PULSE 69; RESP 17; TEMP 36.7; O2SAT 97
== END 2022-10-31 20:58 | disposition home or self-care (01) ==
PROVIDERS: Emergency Provider Student in an Organized Health Care Education/Training Program; PCP Physician Assistant
DX: R10.9 Unspecified abdominal pain (principal); R31.9 Hematuria, unspecified
CPT/HCPCS: 74177; 80053; 81001; 85025; 99284; 99285; Q9967

== ENCOUNTER 2022-11-28 10:11 | Emergency (ER) | payer OTHER, SELFPAY ==
[2022-11-28 10:12] VITALS: BP 144/90; PULSE 88; RESP 18; TEMP 36.6; O2SAT 99; BMI 33.6
--- NOTE | 2022-11-28 10:21 | PC.NURSE ---
DR JOSE AT BEDSIDE
--- NOTE | 2022-11-28 10:22 | HMH.EDUROGM ---
Discharge Plan Disposition Patient Disposition: Home, Self-Care Chief Complaint: Urogenital-Male Prescriptions Prescriptions: No Action tamsulosin [Flomax] 0.4 mg capsule 0.4 mg PO DAILY Qty: 90 0RF fluticasone propionate [Flonase Allergy Relief] 50 mcg/actuation spray,suspension 1 spray NS DAILY Qty: 16 3RF Rx Instructions: administer into each nostril alprazolam [Xanax] 0.5 mg tablet 0.5 mg PO BID Qty: 60 0RF montelukast 10 mg tablet 10 mg PO DAILY Qty: 90 3RF cetirizine [Zyrtec] 10 mg tablet 10 mg PO DAILY PRN (Reason: allergy symptoms) Qty: 90 3RF amitriptyline 25 mg tablet 25 mg PO DAILY Qty: 30 2RF Referrals Follow up/Referrals: Lisha Marquez PA [Primary Care Provider] - See instructions Activity Restrictions/Add. Instructions Additional Instructions/Restrictions: Follow-up with your primary care doctor and/or urologist as needed. Your work-up today did not show any life-threatening or dangerous conditions. I recommend that you take Azo [id number] medication for your urinary discomfort as needed. Return to the emergency department if you develop a fever or if you feel worse in any way. Your urinalysis today was normal. Your blood work was also normal. Clinical Impressions Clinical Impression: Dysuria, Anxiety Instructions Patient Instructions: DI for Dysuria -- Adult Discharge ED Provider: Jameel Riley Urogenital HPI General Chief complaint: Urogenital-Male Stated complaint: back pain and stomach pain, constipated Time Seen by Provider: 11/28/22 10:22 Mode of Arrival: Family Vehicle Source of Information: Patient History of Present Illness HPI Narrative: The patient presents to the emergency department complaining of urinary symptoms for the last 9 weeks. He was diagnosed with prostatitis and has completed antibiotics for this. He has been seen by a urologist (Dr. Jean). He has had appendicitis approximately 9 weeks ago. He had 2 CTs of the abdomen. Within the last 2 months. He complains of burning on urination and decreased urine output. He also complains of constipation. Related Data Previous Rx's Medication Instructions Recorded fluticasone propionate 50 1 spray intranasal DAILY #16 grams 03/15/22 mcg/actuation nasal spray,suspension (Flonase Allergy Relief) tamsulosin 0.4 mg capsule (Flomax) 0.4 mg PO DAILY #90 caps 10/13/22 alprazolam 0.5 mg tablet (Xanax) 0.5 mg PO BID #60 tabs 10/19/22 cetirizine 10 mg tablet (Zyrtec) 10 mg PO DAILY PRN allergy 11/08/22 symptoms #90 tabs montelukast 10 mg tablet 10 mg PO DAILY #90 tabs 11/08/22 amitriptyline 25 mg tablet 25 mg PO DAILY #30 tabs 11/19/22 Allergies Allergy/AdvReac Type Severity Reaction Status Date / Time No Known Allergies Allergy Verified 11/10/22 07:53 [facility] Disclaimer: The information contained in this section may have been updated after the patient was seen, as this information can be updated by other users. 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
[2022-11-28 10:28] LABS: Microscopic, Urine URINE MICROSCOPIC (MICROSCOPIC)
[2022-11-28 10:30] VITALS: BP 145/96; PULSE 87; RESP 18; O2SAT 97
[2022-11-28 10:30] LABS: Appearance,Urine CLEAR (Clear); Bilirubin,Urine Negative (Negative); Blood, Urine TRACE-I (Negative); Color,Urine YELLOW (Yellow); Glucose,Urine (UA) Negative (Negative); Ketones,Urine Negative (Negative); Leukocyte Esterase,Urine Negative (Negative); Nitrate,Urine Negative (Negative); Protein,Urine Negative (Negative); Specific Gravity, Urine >= 1.030 (1.005-1.030); Urobilinogen,Urine 0.2 EU/dl (0.2)
--- NOTE | 2022-11-28 10:31 | PC.NURSE ---
BLADDER SCAN 5MLS AT THIS TIME
[2022-11-28 10:37] LABS: Basophils % 0.6 % (0.1-2.0); Eosinophils # 0.2 K/mm3 (0.0-0.4); Eosinophils % 2.4 % (0.1-12.0); Hematocrit 49.9 % (42.0-52.0); Hemoglobin 16.5 g/dL (14.1-18.0); Lymphocytes # 1.8 K/mm3 (0.7-4.5); Lymphocytes % 26.7 % (10-50); Mean Corpuscular HGB Conc 33.1 g/dL (31.8-35.4); Mean Corpuscular Volume 87.5 fl (80-94); Mean Platelet Volume 7.7 fl (7.4-10.4); Monocytes # 0.3 K/mm3 (0.1-1.0); Monocytes % 4.6 % (1.7-9.3); Neutrophils # 4.5 K/mm3 (1.8-7.8); Neutrophils % 65.6 % (37.0-80.0); Platelet Count 272 K/mm3 (142-424); Red Cell Distribution Width 12.9 % (11.5-17.5); White Blood Count 6.9 K/mm3 (4.8-10.8)
[2022-11-28 10:40] LABS: Bacteria,Urine Trace /lpf; Squamous Epithelial Cell,Urine Occasional #/hpf (0-5)
[2022-11-28 10:41] LABS: Chloride 104 mmol/L (98-107); Sodium 138 mmol/L (136-145)
[2022-11-28 10:42] LABS: Potassium 4.3 mmoL/L (3.5-5.1)
[2022-11-28 10:44] LABS: Blood Urea Nitrogen 11 mg/dl (9-20); Creatinine Clearance Estimated 137 mL/min (50-200); Estimated Glomerular Filt Rate 76 ml/min (>60); GFR (African American) 92 ML/MIN (>60)
[2022-11-28 10:45] LABS: Anion Gap 7.3 mEq/L (5-15); Carbon Dioxide 31 mmol/L (22.0-30.0); Glucose 100 mg/dl (74-100)
[2022-11-28 11:00] VITALS: BP 145/95; PULSE 74; RESP 18; O2SAT 96
--- NOTE | 2022-11-28 11:12 | PC.NURSE ---
Rounded on patient; call light within reach
--- NOTE | 2022-11-28 11:15 | PC.NURSE ---
DR JOSE AT BEDSIDE TO UPDATE PT ON POC
[2022-11-28 11:30] VITALS: BP 139/82; PULSE 66; RESP 18; O2SAT 95
[2022-11-28 11:39] VITALS: BP 139/82; PULSE 66; RESP 18; TEMP 36.7; O2SAT 95
== END 2022-11-28 11:40 | disposition home or self-care (01) ==
PROVIDERS: Emergency Provider Emergency Medicine; PCP Physician Assistant
DX: R30.0 Dysuria (principal)
CPT/HCPCS: 80048; 81001; 85025; 96374; 99284

== ENCOUNTER → 2022-12-20 09:45 | Outpatient (CLI) | payer OTHER, SELFPAY ==
[2022-12-20 14:57] LABS: Alanine Aminotransferase 70 U/L (12-78); Albumin Level 4.2 g/dl (3.5-5.0); Albumin/Globulin Ratio 1.6 (1.1-1.8); Alkaline Phosphatase 59 U/L (38-126); Anion Gap 15.7 mEq/L (5-15); Aspartate Amino Transferase 42 U/L (17-59); Blood Urea Nitrogen 12 mg/dl (9-20); Calcium 9.1 mg/dl (8.4-10.2); Carbon Dioxide 31 mmol/L (22.0-30.0); Chloride 97 mmol/L (98-107); Chol/HDL Ratio 4.2 (1-3.5); Cholesterol 184 mg/dl (140-200); Estimated Glomerular Filt Rate 85 ml/min (>60); GFR (African American) 103 ML/MIN (>60); Globulin 2.6 g/dL (1.3-3.2); Glucose 88 mg/dl (74-100); HDL Cholesterol 44 mg/dl (40-60); Potassium 4.7 mmoL/L (3.5-5.1); Sodium 139 mmol/L (136-145); Total Protein,Serum 6.8 g/dl (6.3-8.2); Triglycerides 153 mg/dl (30-150); VLDL Cholesterol 31 mg/dL (0-40)
[2022-12-20 15:00] LABS: Basophils % 0.6 % (0.1-2.0); Eosinophils # 0.2 K/mm3 (0.0-0.4); Eosinophils % 2.2 % (0.1-12.0); Hematocrit 53.3 % (42.0-52.0); Hemoglobin 17.5 g/dL (14.1-18.0); Lymphocytes # 2.2 K/mm3 (0.7-4.5); Lymphocytes % 30.6 % (10-50); Mean Corpuscular HGB Conc 32.8 g/dL (31.8-35.4); Mean Corpuscular Hemoglobin 28.9 pg (27.0-31.2); Mean Platelet Volume 7.9 fl (7.4-10.4); Monocytes # 0.3 K/mm3 (0.1-1.0); Monocytes % 4.6 % (1.7-9.3); Neutrophils # 4.5 K/mm3 (1.8-7.8); Neutrophils % 62.2 % (37.0-80.0); Platelet Count 333 K/mm3 (142-424); Red Blood Count 6.06 M/mm3 (4.60-6.20); Red Cell Distribution Width 12.9 % (11.5-17.5); White Blood Count 7.2 K/mm3 (4.8-10.8)
[2022-12-20 15:12] LABS: C-Reactive Protein 2.9 mg/L (0-4)
[2022-12-20 15:13] LABS: 25-OH Vitamin D, Total 29.1 ng/mL (30-100)
[2022-12-20 15:15] LABS: T4 (Thyroxine) 6.8 ug/dl (5.53-11.0)
[2022-12-20 15:28] LABS: Thyroid Stimulating Hormone 1.34 uIU/mL (0.465-4.68)
[2022-12-20 15:29] LABS: Erythrocyte Sedimentation Rate 2 mm/hr (0-15)
[2022-12-22 13:57] LABS: Anti-Centromere B Antibodies <0.2 AI (0.0-0.9); Anti-DNA (DS) Ab Qn 1 IU/mL (0-9); Anti-Jo-1 <0.2 AI (0.0-0.9); Anti-Smith Antibody <0.2 AI (0.0-0.9); Antichromatin Antibodies <0.2 AI (0.0-0.9); Antiscleroderma-70 Antibodies <0.2 AI (0.0-0.9); RNP Antibodies <0.2 AI (0.0-0.9); Sjogren's Anti-SS-A <0.2 AI (0.0-0.9); Sjogren's Anti-SS-B <0.2 AI (0.0-0.9)
[2022-12-24 11:05] LABS: Neisseria gonorrhoeae, NAA Negative (Negative)
== END ==
PROVIDERS: PCP Physician Assistant; Visit Provider Physician Assistant
DX: R10.9 Unspecified abdominal pain (principal); R30.0 Dysuria
CPT/HCPCS: 80053; 80061; 82306; 84436; 84443; 85025; 85651; 86140; 86225; 86235; 87086; 87491; 87591

== ENCOUNTER → 2022-12-20 23:20 | Outpatient (CLI) | payer OTHER, SELFPAY | PROVIDERS: PCP Physician Assistant; Visit Provider Physician Assistant | DX: R10.9 Unspecified abdominal pain (principal) ==

== ENCOUNTER → 2022-12-22 08:32 | Outpatient (CLI) | payer OTHER, SELFPAY ==
[2022-12-22 08:37] LABS: Adenovirus F 40/41, stool Not Detected (NotDetected); Astrovirus Not Detected (NotDetected); Campylobacter Not Detected (NotDetected); Cryptosporidium Not Detected (NotDetected); Cyclospora Cayetanesis Not Detected (NotDetected); Entamoeba histolytica Not Detected (NotDetected); Enteroaggregative E coli Not Detected (NotDetected); Enteropathogenic E coli Not Detected (NotDetected); Enterotoxigenic E coli Not Detected (NotDetected); Giardia lamblia Not Detected (NotDetected); Norovirus Not Detected (NotDetected); Plesimonas Shigalloides, PCR Not Detected (NotDetected); Rotavirus A Not Detected (NotDetected); Salmonella, PCR Not Detected (NotDetected); Sapovirus Not Detected (NotDetected); Shiga-like toxin E coli Not Detected (NotDetected); Shigella Enterovasive E coli Not Detected (NotDetected); Vibrio Cholerae Not Detected (NotDetected); Vibrio, PCR Not Detected (NotDetected); Yersinia Entercolitica, PCR Not Detected (NotDetected)
[2022-12-22 14:20] LABS: Clostridium Difficile A/B, PCR Detected (NotDetected)
== END ==
PROVIDERS: PCP Physician Assistant; Visit Provider Physician Assistant
DX: R10.9 Unspecified abdominal pain (principal); A04.72 Enterocolitis due to Clostridium difficile, not specified as recurrent; R10.2 Pelvic and perineal pain; R19.4 Change in bowel habit; N41.9 Inflammatory disease of prostate, unspecified; Z90.49 Acquired absence of other specified parts of digestive tract; Z79.2 Long term (current) use of antibiotics
CPT/HCPCS: 87507

== ENCOUNTER → 2023-01-04 06:51 | Outpatient (CLI) | payer OTHER, SELFPAY ==
--- NOTE | 2023-01-04 06:52 | MR_ITS ---
FINAL REPORT CLINICAL HISTORY: neuropathy, radicular symptoms FINDINGS: Multiplanar MR imaging of the lumbar spine was performed without contrast. On the sagittal T2-weighted images, abnormal decreased signal seen at L2-3. There is moderate loss of height at that level. The vertebrae are of normal height. The vertebral alignment is normal. L1-2: There is no significant canal stenosis or neural foraminal narrowing. L2-3: Mild diffuse disc bulge is present with mild bilateral neural foraminal narrowing. L3-4: There is no significant canal stenosis or neural foraminal narrowing. L4-5: There is mild annular prominence and mild bilateral neural foraminal narrowing. L5-S1: There is no significant canal stenosis or neural foraminal narrowing. IMPRESSION: Mild bilateral neural foraminal narrowing at L2-3 and L4-5. Reviewed, Interpreted and Dictated by Frederick Cid MD Transcribed by Melody Vance Authenticated and [facility]
--- NOTE | 2023-01-04 06:52 | US_ITS ---
FINAL REPORT TECHNIQUE: Ultrasound images of the testicles were obtained bilaterally. Color Doppler images were obtained. CLINICAL HISTORY: .urinary resistance, back pain, rectal pain FINDINGS: The testicles are homogeneous. Arterial flow is identified bilaterally. No intratesticular masses are identified. There is a varicocele on the left. There are small epididymal cysts bilaterally measuring up to 4 mm on the right and 5 mm on the left. IMPRESSION: Small left varicocele. Reviewed, Interpreted and Dictated by Frederick Cid MD Transcribed by Melody Vance Authenticated and [facility]
--- NOTE | 2023-01-04 06:52 | MR_ITS ---
FINAL REPORT TECHNIQUE: Multi planar MR imaging of the pelvis was performed without contrast. Sagittal and coronal reformatted images were obtained and reviewed. CLINICAL HISTORY: rectal pain, urinary hesitancy, persistent prostat FINDINGS: The femoral head demonstrates a normal smooth contour. The acetabular labrum appear intact. The urinary bladder is normal in configuration. No pelvic inflammation is identified. There is no free fluid. IMPRESSION: No acute process. Reviewed, Interpreted and Dictated by Frederick Cid MD Transcribed by Melody Vance Authenticated and [facility]
== END ==
PROVIDERS: PCP Physician Assistant; Visit Provider Physician Assistant
DX: G62.9 Polyneuropathy, unspecified (principal); M54.9 Dorsalgia, unspecified; R39.11 Hesitancy of micturition; K62.89 Other specified diseases of anus and rectum; N41.9 Inflammatory disease of prostate, unspecified
CPT/HCPCS: 72148; 72195; 76870

== ENCOUNTER → 2023-05-11 13:38 | Outpatient (CLI) | payer OTHER, SELFPAY ==
[2023-05-11 13:41] LABS: Adenovirus F 40/41, stool Not Detected (NotDetected); Astrovirus Not Detected (NotDetected); Campylobacter Not Detected (NotDetected); Clostridium Difficile A/B, PCR Not Detected (NotDetected); Cryptosporidium Not Detected (NotDetected); Cyclospora Cayetanesis Not Detected (NotDetected); Entamoeba histolytica Not Detected (NotDetected); Enteroaggregative E coli Not Detected (NotDetected); Enteropathogenic E coli Not Detected (NotDetected); Enterotoxigenic E coli Not Detected (NotDetected); Giardia lamblia Not Detected (NotDetected); Norovirus Not Detected (NotDetected); Plesimonas Shigalloides, PCR Not Detected (NotDetected); Rotavirus A Not Detected (NotDetected); Salmonella, PCR Not Detected (NotDetected); Sapovirus Not Detected (NotDetected); Shiga-like toxin E coli Not Detected (NotDetected); Shigella Enterovasive E coli Not Detected (NotDetected); Vibrio Cholerae Not Detected (NotDetected); Vibrio, PCR Not Detected (NotDetected); Yersinia Entercolitica, PCR Not Detected (NotDetected)
== END ==
PROVIDERS: PCP Physician Assistant; Visit Provider Physician Assistant
DX: R19.7 Diarrhea, unspecified (principal)
CPT/HCPCS: 87507

== ENCOUNTER 2023-08-25 14:06 | Outpatient (CLI) | payer SELFPAY ==
[2023-08-26 16:22] LABS: C difficile Toxins AB, EIA Negative (Negative); H. pylori Stool Ag, EIA Negative (Negative)
== END 2023-08-25 23:59 ==
PROVIDERS: PCP Physician Assistant; Visit Provider Physician Assistant
DX: R19.7 Diarrhea, unspecified (principal); Z86.19 Personal history of other infectious and parasitic diseases
CPT/HCPCS: 87324; 87338

== ENCOUNTER 2023-08-26 14:18 | Outpatient (CLI) | payer OTHER, SELFPAY ==
--- NOTE | 2023-08-26 14:23 | XR_ITS ---
FINAL REPORT CLINICAL HISTORY: obstipation COMPARISON: None FINDINGS: Chest: The heart and mediastinal within normal limits. The lungs are clear. There is no pneumothorax. Osseous structures are unremarkable. Abdomen: AP and upright views of the abdomen were obtained. There is a moderate stool burden with a nonspecific bowel gas pattern with scattered fluid levels. No abnormal calcifications are identified. IMPRESSION: No acute cardiopulmonary process. Moderate stool burden with nonspecific bowel gas pattern and scattered fluid levels. Reviewed, Interpreted and Dictated by Horacio Rose III, MD Transcribed by Monica Lorenzo Authenticated and [facility]
== END 2023-08-26 23:59 ==
LOC: RAD 14:21
PROVIDERS: PCP Physician Assistant; Visit Provider Physician Assistant
DX: K58.9 Irritable bowel syndrome, unspecified (principal); K59.00 Constipation, unspecified
CPT/HCPCS: 74021

== ENCOUNTER 2023-08-30 14:38 | Emergency (ER) | payer OTHER, SELFPAY ==
[2023-08-30 14:38] VITALS: BP 166/99; PULSE 74; RESP 18; TEMP 36.4; O2SAT 99; BMI 34.0
--- NOTE | 2023-08-30 15:08 | HMH.EDGENADL ---
Discharge Plan Disposition Patient Disposition: Home, Self-Care Chief Complaint: Abdominal Pain Prescriptions Prescriptions: No Action fluticasone propionate [Flonase Allergy Relief] 50 mcg/actuation spray,suspension 1 spray NS DAILY Qty: 16 3RF Rx Instructions: administer into each nostril cetirizine [Zyrtec] 10 mg tablet 10 mg PO DAILY PRN (Reason: allergy symptoms) Qty: 90 3RF nystatin 100,000 unit/gram cream 1 applic topical QID 10 Days Qty: 30 0RF pregabalin [Lyrica] 25 mg capsule 25 mg PO BID Qty: 60 0RF alprazolam [Xanax] 0.25 mg tablet 0.25 mg PO BID PRN (Reason: anxiety) Qty: 60 0RF Rx Instructions: Tapering dose duloxetine [Cymbalta] 60 mg capsule,delayed release(DR/EC) 60 mg PO DAILY Qty: 30 2RF buspirone 5 mg tablet 5 mg PO BID Qty: 60 2RF Vowst Capsule 4 cap PO DAILY 3 Days Qty: 12 0RF Referrals Follow up/Referrals: Lisha Marquez PA [Primary Care Provider] - See instructions Activity Restrictions/Add. Instructions Additional Instructions/Restrictions: Call your family doctor to establish care for this visit to the emergency department and schedule follow-up within 48 hours to ensure improvement. If you have any worsening of your condition or any other concerning signs or symptoms, return to the emergency department or your primary care doctor for further evaluation. Be sure to take 1 capful of MiraLAX (polyethylene glycol is the generic) daily for normal, smooth bowel movements. Titrate this up or down from 1 capful until bowel movements are the consistency of toothpaste. If you continue to have GI symptoms, talk to family doctor about scheduling follow-up with gastroenterology. Clinical Impressions Clinical Impression: Abdominal pain Qualifiers: Abdominal location: generalized Qualified Code(s): R10.84 - Generalized abdominal pain Instructions Patient Instructions: DI for Acute Abdominal Pain Discharge ED Provider: Emil Gallegos General Adult HPI <Jaclyn Ding DO - Last Filed: 08/30/23 15:08> General Chief complaint: Abdominal Pain Stated complaint: lower left side pain Time Seen by Provider: 08/30/23 15:02 Mode of Arrival: Ambulatory Source of Information: Patient Limitations: No Limitations Description of Symptoms (Recalled from ER Triage Doc. by RN): Patient states he has been having left lower quadrant pain for one week. Was seen by PCP and treated for constipation but symptoms have not improved. Patient states symptoms started as indegestion and have progressed over the week. Related Data Previous Rx's Medication Instructions Recorded fluticasone propionate 50 1 spray intranasal DAILY #16 grams 03/15/22 mcg/actuation nasal spray,suspension (Flonase Allergy Relief) cetirizine 10 mg tablet (Zyrtec) 10 mg PO DAILY PRN allergy 11/08/22 symptoms #90 tabs nystatin 100,000 unit/gram topical 1 applic topical QID 10 days #30 12/26/22 cream grams pregabalin 25 mg capsule (Lyrica) 25 mg PO BID #60 caps 04/25/23 alprazolam 0.25 mg tablet (Xanax) 0.25 mg PO BID PRN anxiety #60 tabs 08/09/23 buspirone 5 mg tablet 5 mg PO BID #60 tabs 08/25/23 duloxetine 60 mg capsule,delayed 60 mg PO DAILY #30 caps 08/25/23 release (Cymbalta) fecal microbio spore,live-brpk 4 cap PO DAILY 3 days #12 caps 08/26/23 (Vowst capsule) Allergies Allergy/AdvReac Type Severity Reaction Status Date / Time No Known Allergies Allergy Verified 12/20/22 09:06 <Emil Gallegos MD - Last Filed: 08/30/23 16:12> History of Present Illness HPI narrative: 38-year-old male history of status post appendectomy, chronic prostatitis not currently having symptoms, C. difficile colitis which has been fully treated in the remote past, abnormal colonoscopy currently undergoing routine colonoscopic imaging presenting with abdominal pain. Patient states that he has been having abdominal cramping over the past few days. He seen his PCP and has also been seen in the emergency department for the symptoms. It is diffuse, nonfocal, does not radiate. Patient states that his last bowel movement was today, 08/30 and was normal for him, but yesterday it was thin, yellowish and floating. He does have a family history of ulcerative colitis, but denies pancreatic problems in the family. PFSH <Jaclyn Ding DO - Last Filed: 08/30/23 15:08> [facility] Disclaimer: The information contained in this section may have been updated after the patient was seen, as this information can be updated by other users. 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 caffeine: Yes <Emil Gallegos MD - Last Filed: 08/30/23 16:12> ROS Obtained: Yes All systems reviewed & no additional complaints except as documented <Emil Gallegos MD - Last Filed: 08/30/23 16:12> General General appearance: alert and in no apparent distress Head Head exam: atraumatic and normocephalic Eye Eye exam: Present normal appearance, PERRL and EOMI ENT ENT exam: Present mucous membranes moist Neck Neck exam: Present normal inspection, full ROM and trachea midline Respiratory Respiratory exam: Absent respiratory distress, wheezes, stridor, accessory muscle use or prolonged expiratory phase Cardiovascular Cardiovascular exam: Present normal rhythm Abdominal Exam Abdominal exam: Present soft; Absent distention, tenderness, guarding, rebound or rigidity Extremities Exam Extremities exam: Absent edema Neurological Exam Neurological exam: Present alert, oriented X3, CN II-XII intact and normal gait; Absent motor sensory deficit Skin Skin exam: Present warm and dry; Absent diaphoresis or erythema Medical Decision Making <Jaclyn Ding DO - Last Filed: 08/30/23 15:08> Vital Signs: 08/30/23 14:38 08/30/23 16:00 Temperature 97.6 F Temperature Source Oral Pulse Rate 76 Pulse Rate [Right] 74 Respiratory Rate 18 Blood Pressure 153/105 H Blood Pressure [Right Arm] 166/99 H Blood Pressure Mean 119 Blood Pressure Mean [Right Arm] 121 Blood Pressure Source [Right Arm] Automatic Cuff 02 Sat by Pulse Oximetry 99 95 Oxygen Delivery Method Room Air Lab Data Lab Results 08/30/23 14:49: WBC 8.5, RBC 5.77, Hgb 17.1, Hct 50.9, MCV 88.2, MCH 29.6, MCHC 33.5, RDW 12.9, Plt Count 302, MPV 7.9, Neut % (Auto) 67.5, Lymph % (Auto) 25.5, [place] % (Auto) 5.3, Eos % (Auto) 1.2, Baso % (Auto) 0.6, Neut # (Auto) 5.7, Lymph # (Auto) 2.2, [place] # (Auto) 0.5, Eos # (Auto) 0.1, Baso # (Auto) 0.1, ESR 4, Sodium 139, Potassium 4.3, Chloride 100, Carbon Dioxide 30, Anion Gap 13.3, BUN 14, Creatinine 1.20, Estimated Creat Clear 126, Estimated GFR 69, Est GFR ( Amer) 83, Glucose 95, Calcium 9.4, Total Bilirubin 1.2, AST 36, ALT 62, Alkaline Phosphatase 60, C-Reactive Protein 6.0 H, Total Protein 8.0, Albumin 4.7, Globulin 3.3 H, Albumin/Globulin Ratio 1.4, Lipase 136 08/30/23 15:30: Urine Color Yellow, Urine Appearance Clear, Urine pH 6.5, Ur Specific [place] <= 1.005, Urine Protein Negative, Urine Glucose (UA) Negative, Urine Ketones Negative, Urine Blood Negative, Urine Nitrate Negative, Urine Bilirubin Negative, Urine Urobilinogen 0.2, Ur Leukocyte Esterase Negative, Urine RBC None, Urine WBC None, Ur Squamous Epith Cells None, Urine Bacteria None 08/30/23 14:49 08/30/23 14:49 Orders (Tests/Meds): ED MEDICATIONS Generic Name Dose Route Start Last Admin Trade Name Freq PRN Reason Stop Dose Admin Sodium Chloride 8 ml 08/30/23 15:20 Sodium Chloride 0.9% 10ml Vial IV 09/29/23 15:19 NEEDED PRN dilute pepcid Discontinued Medications Generic Name Dose Route Start Last Admin Trade Name Freq PRN Reason Stop Dose Admin Dexamethasone Sodium Phosphate 10 mg 08/30/23 15:20 08/30/23 15:51 Dexamethasone 4mg/Ml 1ml Vial IV 08/30/23 15:21 10 mg ONCE ONE Administration Famotidine 20 mg 08/30/23 15:20 08/30/23 15:51 Famotidine 20mg/2ml Vial IV 08/30/23 15:21 20 mg ONCE ONE Administration Ketorolac Tromethamine 15 mg 08/30/23 15:20 08/30/23 15:51 Ketorolac 30mg/Ml Vial IV 08/30/23 15:21 15 mg ONCE ONE Administration ORDERS Category Date Time Status CBC w/Auto Diff [Complete Blood Count Auto Diff] Stat Lab 08/30/23 14:49 Completed CMP [Comprehensive Metabolic Panel] Stat Lab 08/30/23 14:49 Completed CRP [C-Reactive Protein] Stat Lab 08/30/23 14:49 Completed ESR [Erythrocyte Sedimentation Rate] Stat Lab 08/30/23 14:49 Completed Lipase Stat Lab 08/30/23 14:49 Completed UA [Urinalysis and Microscopic] Stat Lab 08/30/23 15:30 Completed <Emil Gallegos MD - Last Filed: 08/30/23 16:12> Medical Records Medical records reviewed: Yes I reviewed the patient's medical records. John Inquiry Pt receiving controlled substance: No John was queried for this patient: No Vital Signs: 08/30/23 14:38 08/30/23 16:00 Temperature 97.6 F Temperature Source Oral Pulse Rate 76 Pulse Rate [Right] 74 Respiratory Rate 18 Blood Pressure 153/105 H Blood Pressure [Right Arm] 166/99 H Blood Pressure Mean 119 Blood Pressure Mean [Right Arm] 121 Blood Pressure Source [Right Arm] Automatic Cuff 02 Sat by Pulse Oximetry 99 95 Oxygen Delivery Method Room Air Lab Data Lab Results 08/30/23 14:49: WBC 8.5, RBC 5.77, Hgb 17.1, Hct 50.9, MCV 88.2, MCH 29.6, MCHC 33.5, RDW 12.9, Plt Count 302, MPV 7.9, Neut % (Auto) 67.5, Lymph % (Auto) 25.5, [place] % (Auto) 5.3, Eos % (Auto) 1.2, Baso % (Auto) 0.6, Neut # (Auto) 5.7, Lymph # (Auto) 2.2, [place] # (Auto) 0.5, Eos # (Auto) 0.1, Baso # (Auto) 0.1, ESR 4, Sodium 139, Potassium 4.3, Chloride 100, Carbon Dioxide 30, Anion Gap 13.3, BUN 14, Creatinine 1.20, Estimated Creat Clear 126, Estimated GFR 69, Est GFR ( Amer) 83, Glucose 95, Calcium 9.4, Total Bilirubin 1.2, AST 36, ALT 62, Alkaline Phosphatase 60, C-Reactive Protein 6.0 H, Total Protein 8.0, Albumin 4.7, Globulin 3.3 H, Albumin/Globulin Ratio 1.4, Lipase 136 08/30/23 15:30: Urine Color Yellow, Urine Appearance Clear, Urine pH 6.5, Ur Specific [place] <= 1.005, Urine Protein Negative, Urine Glucose (UA) Negative, Urine Ketones Negative, Urine Blood Negative, Urine Nitrate Negative, Urine Bilirubin Negative, Urine Urobilinogen 0.2, Ur Leukocyte Esterase Negative, Urine RBC None, Urine WBC None, Ur Squamous Epith Cells None, Urine Bacteria None Orders (Tests/Meds): ED MEDICATIONS Generic Name Dose Route Start Last Admin Trade Name Igor PRN Reason Stop Dose Admin Sodium Chloride 8 ml 08/30/23 15:20 Sodium Chloride 0.9% 10ml Vial IV 09/29/23 15:19 NEEDED PRN dilute pepcid Discontinued Medications Generic Name Dose Route Start Last Admin Trade Name Igor PRN Reason Stop Dose Admin Dexamethasone Sodium Phosphate 10 mg 08/30/23 15:20 08/30/23 15:51 Dexamethasone 4mg/Ml 1ml Vial IV 08/30/23 15:21 10 mg ONCE ONE Administration Famotidine 20 mg 08/30/23 15:20 08/30/23 15:51 Famotidine 20mg/2ml Vial IV 08/30/23 15:21 20 mg ONCE ONE Administration Ketorolac Tromethamine 15 mg 08/30/23 15:20 08/30/23 15:51 Ketorolac 30mg/Ml Vial IV 08/30/23 15:21 15 mg ONCE ONE Administration ORDERS Category Date Time Status CBC w/Auto Diff [Complete Blood Count Auto Diff] Stat Lab 08/30/23 14:49 Completed CMP [Comprehensive Metabolic Panel] Stat Lab 08/30/23 14:49 Completed CRP [C-Reactive Protein] Stat Lab 08/30/23 14:49 Completed ESR [Erythrocyte Sedimentation Rate] Stat Lab 08/30/23 14:49 Completed Lipase Stat Lab 08/30/23 14:49 Completed UA [Urinalysis and Microscopic] Stat Lab 08/30/23 15:30 Completed Medical Decision Narrative: 38-year-old male history of status post appendectomy, diverticulosis, chronic prostatitis not currently having symptoms, C. difficile colitis which has been fully treated in the remote past, abnormal colonoscopy currently undergoing routine colonoscopic imaging presenting with abdominal pain. Patient states that he has been having abdominal cramping over the past few days. He seen his PCP and has also been seen in the emergency department for the symptoms. It is diffuse, nonfocal, does not radiate. Patient states that his last bowel movement was today, 08/30 and was normal for him, but yesterday it was thin, yellowish and floating. He does have a family history of ulcerative colitis, but denies pancreatic problems in the family. History was obtained via conversation with patient. On arrival, patient hemodynamically stable, alert, [oriented x4, ][appropriate, ]GCS [15], moving all extremities spontaneously, pupils equal and reactive to light. Full physical exam performed and significant for soft, nondistended, nontender abdomen on my exam. No flank tenderness. Very well-appearing male who does not appear to be in any acute distress. Hemodynamically stable and afebrile Differential includes IBS, IBD, PUD, gastritis, enteritis, gastroenteritis, pancreatitis, SBO, colitis, diverticulitis, nephrolithiasis, UTI, aortic pathology, mesenteric ischemia, cholecystitis, hepatitis, among others. Patient was given Toradol, [place] of for symptomatic management[ and correction of underlying abnormalities]. Workup independently interpreted and significant for nonactionable CBC or chemistry. Lipase normal. ESR and CRP negative and nonactionable urinalysis unconcerning and kidney function normal. CT abdomen pelvis was considered, but deemed unnecessary due to diffuse, nonfocal abdominal pain without systemic symptoms and reassuring labs. I feel the risks of radiation outweigh the benefits of a probable negative scan. On reevaluation, patient remains at baseline.Given patient presentation, workup, history, this most likely represents constipation versus functional abdominal pain versus other gastrointestinal disorder. Because patient at baseline without signs or symptoms of clinical decompensation, deemed appropriate for discharge. Results were relayed to patient who voiced understanding and were agreeable to outpatient management and follow up. At the time of discharge the patient was hemodynamically stable, tolerating PO, and mobilizing appropriately. It was recommended that patient see his family doctor regarding these visits to the emergency department and need to follow-up with GI if continued symptoms. It was also recommended that he takes 1 capful of MiraLAX daily to help with symptoms. <Emil Gallegos MD - Last Filed: 08/30/23 16:12> Critical Care Time Critical Care Time: No
[2023-08-30 15:26] LABS: Basophils # 0.1 K/mm3 (0-0.2); Basophils % 0.6 % (0.1-2.0); Eosinophils # 0.1 K/mm3 (0.0-0.4); Eosinophils % 1.2 % (0.1-12.0); Hematocrit 50.9 % (42.0-52.0); Hemoglobin 17.1 g/dL (14.1-18.0); Lymphocytes # 2.2 K/mm3 (0.7-4.5); Lymphocytes % 25.5 % (10-50); Mean Corpuscular HGB Conc 33.5 g/dL (31.8-35.4); Mean Corpuscular Hemoglobin 29.6 pg (27.0-31.2); Mean Corpuscular Volume 88.2 fl (80-94); Mean Platelet Volume 7.9 fl (7.4-10.4); Monocytes # 0.5 K/mm3 (0.1-1.0); Monocytes % 5.3 % (1.7-9.3); Neutrophils # 5.7 K/mm3 (1.8-7.8); Neutrophils % 67.5 % (37.0-80.0); Platelet Count 302 K/mm3 (142-424); Red Blood Count 5.77 M/mm3 (4.60-6.20); Red Cell Distribution Width 12.9 % (11.5-17.5); White Blood Count 8.5 K/mm3 (4.8-10.8)
[2023-08-30 15:33] LABS: Alanine Aminotransferase 62 U/L (12-78); Albumin Level 4.7 g/dl (3.5-5.0); Albumin/Globulin Ratio 1.4 (1.1-1.8); Alkaline Phosphatase 60 U/L (38-126); Anion Gap 13.3 mEq/L (5-15); Aspartate Amino Transferase 36 U/L (17-59); Bilirubin,Total 1.2 mg/dl (0.2-1.3); Blood Urea Nitrogen 14 mg/dl (9-20); Calcium 9.4 mg/dl (8.4-10.2); Carbon Dioxide 30 mmol/L (22.0-30.0); Chloride 100 mmol/L (98-107); Creatinine Clearance Estimated 126 mL/min (50-200); Estimated Glomerular Filt Rate 69 ml/min (>60); GFR (African American) 83 ML/MIN (>60); Globulin 3.3 g/dL (1.3-3.2); Glucose 95 mg/dl (74-100); Lipase 136 U/L (23-300); Potassium 4.3 mmoL/L (3.5-5.1); Sodium 139 mmol/L (136-145)
[2023-08-30 15:36] LABS: Microscopic, Urine URINE MICROSCOPIC (MICROSCOPIC)
[2023-08-30 15:38] LABS: Appearance,Urine CLEAR (Clear); Bilirubin,Urine Negative (Negative); Blood, Urine Negative (Negative); Color,Urine YELLOW (Yellow); Glucose,Urine (UA) Negative (Negative); Ketones,Urine Negative (Negative); Leukocyte Esterase,Urine Negative (Negative); Nitrate,Urine Negative (Negative); PH,Urine 6.5 (5.0-8.5); Protein,Urine Negative (Negative); Specific Gravity, Urine <= 1.005 (1.005-1.030); Urobilinogen,Urine 0.2 EU/dl (0.2)
[2023-08-30] MEDS: DEXAMETHASONE 4MG/ML 1ML VIAL 10 MG IV (15:51)
[2023-08-30] MEDS: FAMOTIDINE 20MG/2ML VIAL 20 MG IV (15:51)
[2023-08-30] MEDS: KETOROLAC 30MG/ML VIAL 15 MG IV (15:51)
[2023-08-30 15:57] LABS: Erythrocyte Sedimentation Rate 4 mm/hr (0-15)
[2023-08-30 16:00] VITALS: BP 153/105; PULSE 76; O2SAT 95
[2023-08-30 16:36] VITALS: BP 153/90; PULSE 77; RESP 18; TEMP 36.4; O2SAT 98
== END 2023-08-30 16:38 | disposition home or self-care (01) ==
PROVIDERS: Emergency Provider Emergency Medicine; PCP Physician Assistant
DX: R10.32 Left lower quadrant pain (principal); G62.9 Polyneuropathy, unspecified
CPT/HCPCS: 80053; 81001; 83690; 85025; 85651; 86140; 96374; 96375; 99285

== ENCOUNTER 2023-09-26 08:42 | Outpatient (CLI) | payer OTHER, SELFPAY ==
--- NOTE | 2023-09-26 08:52 | CT_ITS ---
FINAL REPORT CLINICAL HISTORY: LLQ pain, diarrjhea COMPARISON: 10/31/2022 FINDINGS: The lung bases are clear. The liver is moderately fatty infiltrated. Gallbladder is present. The spleen is unremarkable. The adrenals are normal. The pancreas is unremarkable. The kidneys enhance appropriately. Precontrast images demonstrate no nephrolithiasis. There are postoperative changes at the base of the cecum likely due to appendectomy. There is moderate stool throughout the colon. There is no adenopathy or free fluid. IMPRESSION: Moderate fatty infiltration of the liver. Moderate stool throughout the colon. Reviewed, Interpreted and Dictated by Frederick Cid MD Transcribed by Kenzie Temple Authenticated and [facility]
[2023-09-26] MEDS: IOPAMIDOL-370 (76%);100ML BOTTLE 75 ML IV (09:24)
[2023-09-26] MEDS: SODIUM CHLORIDE 0.9% 10ML SYR (RAD ONLY) 10 ML IV (09:24)
== END 2023-09-26 23:59 ==
LOC: RAD 08:42
PROVIDERS: PCP Physician Assistant; Visit Provider Physician Assistant
DX: R10.32 Left lower quadrant pain (principal)
CPT/HCPCS: 74178; Q9967

== ENCOUNTER 2023-09-28 15:36 | Outpatient (CLI) | payer OTHER, SELFPAY ==
[2023-09-29 15:11] LABS: H. pylori Breath Test Negative (Negative)
== END 2023-09-28 23:59 ==
LOC: LAB 15:37
PROVIDERS: PCP Physician Assistant; Visit Provider Surgery
DX: K58.9 Irritable bowel syndrome, unspecified (principal)
CPT/HCPCS: 83013

== ENCOUNTER 2023-10-11 10:52 | Day surgery (SDC) | payer OTHER, SELFPAY ==
[2023-10-10 10:20] VITALS: BMI 32.9
[2023-10-11 11:02] VITALS: BP 134/89; PULSE 88; RESP 18; TEMP 36.5; O2SAT 97
[2023-10-11] MEDS: LACTATED RINGERS 1000ML 1,000 ML 25 ML IV (11:02)
--- NOTE | 2023-10-11 11:58 | EXP.ANES.CKL ---
[facility] Disclaimer: The information contained in this section may have been updated after the patient was seen, as this information can be updated by other users. 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 caffeine: Yes [facility] Anesthesia Checklist Patient Identification Patient Identification: Arm Band and Verbal (Name & ) Structural Data Admitted From: Home Planned Operative Procedure/s: EGD/Colonoscopy Consent for Planned Operative Procedure(s) Verified: Yes NPO Status Verified Time NPO: 00:00 Additional verifications Anesthesia Reactions: No Airway Assessment Mallampati Score:: Class I C-Spine Mobility Assessed: Yes TMJ Mobility Assessed: Yes Dentition: Good Dentition Neurological Assessment Level of Consciousness: Awake Hx Seizures: No Numbness or tingling in extremities: No Anesthesia Plan Anesthesia Risk discussed: Yes Anesthesia Plan: Verified ASA Class: II Anesthesia Type: MAC
[2023-10-11 12:13] VITALS: O2SAT 97
--- NOTE | 2023-10-11 12:49 | HMH.SCOPE ---
Procedure: Date: 10/11/23 Patient Date of :: 1985 Procedure Performed:: Esophagogastroduodenoscopy with biopsy Colonoscopy Indications:: Gastroesophageal reflux Abdominal pain Recent C. difficile infection Chronic constipation History of colon polyps Performing Provider:: Jose Scott MD Referring Provider:: . Sedation:: Monitored anesthesia care Procedure:: After informed consent was obtained the patient was taken to the endoscopy suite. Sedation ensued after the patient was transferred to the left lateral decubitus position. Pulse, blood pressure, and oxygen saturation were monitored throughout the procedure. The endoscope was advanced beyond the duodenal bulb. Retroflexion within the gastric lumen was accomplished. The gastroscope was carefully removed. Digital rectal exam revealed no significant abnormality. The colonoscope was placed in position. The entire colon was evaluated. The colonoscope was carefully removed and the patient was transferred to recovery in stable condition. Please see findings and specimens below for detail. Findings:: Gastroesophageal junction at 40 cm Minimal gastritis Bowel preparation fair No obvious inflammatory changes noted throughout colon Specimens:: Antral biopsy Recommendations:: Follow-up path Gastroenterology consultation pending for evaluation regarding likely irritable bowel syndrome with constipation Repeat colonoscopy in 3-5 years secondary to history of colon polyps (likely deferred to gastroenterology) Complications:: No immediate Estimated blood obtained (mL): 1 Colonoscopy Component Colonoscopy Component Was a colonoscopy performed during today's procedure?: Yes Recommended follow up colonoscopy of at least 10 years?: No If no, follow up colonoscopy recommended in ___ years?: (See above) Reason for not recommending >/= 10 yr follow-up interval?: (See above)
[2023-10-11 12:50] VITALS: BP 113/76; PULSE 87; RESP 18; TEMP 36.6; O2SAT 93
[2023-10-11 13:00] VITALS: BP 108/69; PULSE 80; RESP 16; O2SAT 93
[2023-10-11 13:10] VITALS: BP 112/81; PULSE 73; RESP 18; O2SAT 96
== END 2023-10-11 13:20 | disposition home or self-care (01) ==
PROVIDERS: PCP Physician Assistant; Visit Provider Surgery
PROC: 0DJ08ZZ Inspection of Upper Intestinal Tract, Via Natural or Artificial Opening Endoscopic (ICD-10-PCS; CPT 43235; principal; 2023-10-11 12:30)
DX: K21.9 Gastro-esophageal reflux disease without esophagitis (principal); R10.9 Unspecified abdominal pain; Z86.19 Personal history of other infectious and parasitic diseases; K59.09 Other constipation; Z86.010 Personal history of colon polyps; K29.70 Gastritis, unspecified, without bleeding; K31.A0 Gastric intestinal metaplasia, unspecified
CPT/HCPCS: 43239; 45378; J2704

== ENCOUNTER 2023-10-12 18:38 | Outpatient (CLI) | payer OTHER, SELFPAY ==
[2023-10-12 19:06] LABS: Basophils # 0.1 K/mm3 (0-0.2); Basophils % 0.7 % (0.1-2.0); Eosinophils # 0.2 K/mm3 (0.0-0.4); Hematocrit 47.2 % (42.0-52.0); Hemoglobin 15.6 g/dL (14.1-18.0); Lymphocytes # 2.4 K/mm3 (0.7-4.5); Lymphocytes % 32.2 % (10-50); Mean Corpuscular HGB Conc 33.1 g/dL (31.8-35.4); Mean Corpuscular Hemoglobin 30.5 pg (27.0-31.2); Mean Corpuscular Volume 92.2 fl (80-94); Mean Platelet Volume 8.7 fl (7.4-10.4); Monocytes # 0.6 K/mm3 (0.1-1.0); Monocytes % 8.3 % (1.7-9.3); Neutrophils # 4.2 K/mm3 (1.8-7.8); Neutrophils % 56.8 % (37.0-80.0); Platelet Count 272 K/mm3 (142-424); Red Blood Count 5.12 M/mm3 (4.60-6.20); Red Cell Distribution Width 12.9 % (11.5-17.5); White Blood Count 7.5 K/mm3 (4.8-10.8)
[2023-10-12 19:31] LABS: Alanine Aminotransferase 59 U/L (12-78); Albumin Level 4.2 g/dl (3.5-5.0); Albumin/Globulin Ratio 1.8 (1.1-1.8); Alkaline Phosphatase 62 U/L (38-126); Anion Gap 14.1 mEq/L (5-15); Aspartate Amino Transferase 32 U/L (17-59); Bilirubin,Total 1.2 mg/dl (0.2-1.3); Blood Urea Nitrogen 14 mg/dl (9-20); Calcium 9.5 mg/dl (8.4-10.2); Carbon Dioxide 24 mmol/L (22.0-30.0); Chloride 105 mmol/L (98-107); Cholesterol 181 mg/dl (140-200); Estimated Glomerular Filt Rate 85 ml/min (>60); GFR (African American) 102 ML/MIN (>60); Globulin 2.3 g/dL (1.3-3.2); Glucose 80 mg/dl (74-100); HDL Cholesterol 36 mg/dl (40-60); Potassium 4.1 mmoL/L (3.5-5.1); Sodium 139 mmol/L (136-145); Total Protein,Serum 6.5 g/dl (6.3-8.2); Triglycerides 251 mg/dl (30-150); VLDL Cholesterol 50 mg/dL (0-40)
[2023-10-12 19:42] LABS: Direct LDL Cholesterol 102.26 mg/dL (100-129)
[2023-10-12 19:48] LABS: Free T4 (Free Thyroxine) 0.88 ng/dl (0.78-2.19)
[2023-10-12 19:49] LABS: 25-OH Vitamin D, Total 32.2 ng/mL (30-100)
[2023-10-12 20:02] LABS: Thyroid Stimulating Hormone 0.49 uIU/mL (0.465-4.68)
[2023-10-12 20:21] LABS: Vitamin B12 441 pg/mL (239-931)
== END 2023-10-12 23:59 ==
LOC: LAB.DROPOF 18:39
PROVIDERS: PCP Physician Assistant; Visit Provider Physician Assistant
DX: R53.83 Other fatigue (principal); E03.9 Hypothyroidism, unspecified; K59.00 Constipation, unspecified; R10.11 Right upper quadrant pain; R19.5 Other fecal abnormalities; E66.9 Obesity, unspecified; Z68.34 Body mass index [BMI] 34.0-34.9, adult
CPT/HCPCS: 80053; 80061; 82306; 82607; 84439; 84443; 85025

== ENCOUNTER 2023-10-13 13:30 | Outpatient (CLI) | payer OTHER, SELFPAY ==
[2023-10-18 14:13] LABS: Pancreatic Elastase, Fecal 402 (>200)
[2023-10-18 15:18] LABS: Calprotectin, Fecal 31 ug/g (0-120)
== END 2023-10-13 23:59 ==
LOC: LAB.DROPOF 13:31
PROVIDERS: PCP Physician Assistant; Visit Provider Physician Assistant
DX: R19.5 Other fecal abnormalities (principal)
CPT/HCPCS: 82656; 83993

== ENCOUNTER 2024-05-12 21:41 | Emergency (ER) | payer OTHER, SELFPAY ==
[2024-05-12 21:43] VITALS: BP 163/101; PULSE 67; RESP 17; TEMP 36.7; O2SAT 98; BMI 32.5
--- NOTE | 2024-05-12 21:47 | XR_ITS ---
PROCEDURE INFORMATION: Exam: XR Right Hand Exam date and time: 05/12/2024 9:54 PM Age: 39 years old Clinical indication: Injury or trauma; Other: Smashed thumb in car door; Additional info: Thumb injury TECHNIQUE: Imaging protocol: Radiologic exam of the right hand. Views: 3 or more views. COMPARISON: No relevant prior studies available. FINDINGS: Bones/joints: Normal. Soft tissues: Normal. IMPRESSION: No acute findings.
--- NOTE | 2024-05-12 21:50 | ED_ITS ---
Discharge Plan Disposition Patient Disposition: Home, Self-Care Prescriptions Prescriptions: No Action cetirizine [Zyrtec] 10 mg tablet 10 mg PO DAILY PRN (Reason: allergy symptoms) Qty: 90 3RF fluticasone propionate [Flonase Allergy Relief] 50 mcg/actuation spray,suspension 1 spray NS DAILY Qty: 16 3RF Rx Instructions: administer into each nostril esomeprazole magnesium [Nexium] 40 mg capsule,delayed release(DR/EC) 40 mg PO BID Qty: 180 3RF alprazolam [Xanax] 0.25 mg tablet 0.25 mg PO BID PRN (Reason: anxiety) Qty: 50 0RF Rx Instructions: Tapering dose Month Referrals Follow up/Referrals: Paul Shaffer APRN [Primary Care Provider] - See instructions Cameron Ruiz DO [Staff Physician] - See instructions Activity Restrictions/Add. Instructions Additional Instructions/Restrictions: Please wear your thumb spica splint as needed for comfort and you may follow-up with Dr. Ruiz in 1 to 2 weeks if not improving. You may take Tylenol and ibuprofen as needed for pain and you may ice the area for swelling. Clinical Impressions Clinical Impression: Crush injury to thumb, Hematoma, subungual, thumb, right Print Language Print Language: Vietnamese Discharge ED Provider: Abram Garner General Adult HPI General Chief complaint: Extremity Injury, Upper Stated complaint: AO 05/12/242129 Injury Right thumb Time Seen by Provider: 05/12/24 21:44 History of Present Illness HPI narrative: Patient is a 39-year-old male presenting today with a right thumb injury after accidentally slamming it into a car door closure. Denies any injuries elsewhere. States he has some numbness in his thumb but is able to move it otherwise. Related Data Previous Rx's ?Medication ?Instructions ?Recorded esomeprazole magnesium 40 mg 40 mg PO BID #180 caps 02/23/24 capsule,delayed release (Nexium) alprazolam 0.25 mg tablet (Xanax) 0.25 mg PO BID PRN anxiety #50 tabs 05/01/24 cetirizine 10 mg tablet (Zyrtec) 10 mg PO DAILY PRN allergy 05/03/24 symptoms #90 tabs fluticasone propionate 50 1 spray intranasal DAILY #16 grams 05/03/24 mcg/actuation nasal spray,suspension (Flonase Allergy Relief) Allergies Allergy/AdvReac Type Severity Reaction Status Date / Time No Known Allergies Allergy Verified 05/03/24 15:37 [facility] Disclaimer: The information contained in this section may have been updated after the patient was seen, as this information can be updated by other users. 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 Neuropathy Anxiety See above. 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 caffeine: Yes Other 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 Have you received the Flu Vaccine for this season: No Have you received the Pneumonia Vaccine: No ROS Obtained: Yes All systems reviewed & no additional complaints except as documented Physical Exam General General appearance: alert and in no apparent distress Respiratory Respiratory exam: Present normal lung sounds bilaterally Cardiovascular Cardiovascular exam: Present regular rate and normal rhythm Extremities Exam Extremities exam: Present other (Right thumb there is a 50% subungual hematoma and soft tissue swelling throughout the thumb itself but there is normal flexion and extension he has some paresthesias but more in the peripheral perfusion is good) Neurological Exam Neurological exam: Present alert and oriented X3 Medical Decision Making Medical Records Screening: Per USPSTF and CDC recommendations, given the prevalence of disease in our region, it is our hospital?s policy to screen for HIV and viral Hepatitis for all patients aged 18 and over and those with ongoing risk factors. John Inquiry Pt receiving controlled substance: No Vital Signs: 05/12/24 21:43 Temperature 98.1 F Temperature Source Oral Pulse Rate [Right] 67 Respiratory Rate 17 Blood Pressure [Right Arm] 163/101 H Blood Pressure Mean [Right Arm] 121 Blood Pressure Source [Right Arm] Automatic Cuff Blood Pressure Position [Right Arm] Sitting 02 Sat by Pulse Oximetry 98 Oxygen Delivery Method Room Air Orders (Tests/Meds): ORDERS Category Date Time Status Hand XR right minimum 3 views [XR hand RT min 3V] Stat Exams 05/12/24 21:47 Taken Medical Decision Narrative: 39-year-old with above history and physical with a crush injury to the right thumb. Tendons appear to be intact clinically will get a plain film to rule out fracture dislocation but involved significant soft tissue injury from the mechanism. He does have a subungual hematoma will discuss with him whether or not he wants trephination after his plain film has returned. Reassessment x-ray performed to person interpreted shows no fractures or dislocation I discussed with him trephination for subungual hematoma and he opted out of doing this. He was given a thumb spica splint advised to wear this as needed for comfort and to follow-up with orthopedic surgery if he needs any further management. Critical Care Critical Care Time Critical Care Time: No
[2024-05-12 23:16] VITALS: BP 147/89; PULSE 84; RESP 20; TEMP 36.7; O2SAT 97
== END 2024-05-12 23:16 | disposition home or self-care (01) ==
PROVIDERS: Emergency Provider Student in an Organized Health Care Education/Training Program; PCP Nurse Practitioner Family
DX: S60.111A Contusion of right thumb with damage to nail, initial encounter (principal); M79.644 Pain in right finger(s); S67.00 Crushing injury of unspecified thumb; V49.3XXA Car occupant (driver) (passenger) injured in unspecified nontraffic accident, initial encounter; Y93.89 Activity, other specified; Y92.9 Unspecified place or not applicable
CPT/HCPCS: 73130; 99283